=== PATIENT | female | born 1980 | race Caucasian/White ===

== ENCOUNTER 2018-06-02 15:10 | Emergency (ER) | payer OTHER ==
[~2018-06-02] VITALS: Ht 167.6 cm; Wt 57.6 kg
[~2018-06-02 15:10] MED LIST: Diflucan100 MG PO; IBUP800 PO; Keflex500 MG PO; OXYACE5T PO; Pyridium200 MG PO; TRAZ50 PO; Zoloft25 MG PO
== END 2018-06-02 18:05 | disposition home or self-care (01) ==
LOC: ER 15:10
DX: F10.129 Alcohol abuse with intoxication, unspecified (principal); F17.210 Nicotine dependence, cigarettes, uncomplicated
CPT/HCPCS: 99284

== ENCOUNTER → 2018-10-22 | Outpatient (CLI) | payer OTHER | END | disposition home or self-care (01) | LOC: LAB EV 09:47 → LAB SHORT 09:47 | DX: N39.0 Urinary tract infection, site not specified (principal) | CPT/HCPCS: 87086 ==

== ENCOUNTER 2021-10-29 20:39 | Emergency (ER) | payer OTHER ==
[~2021-10-29] VITALS: Ht 167.6 cm; Wt 59.0 kg
[~2021-10-29 20:39] MED LIST changes: +BUSP10 PO; +CEPH500 PO
== END 2021-10-29 23:52 | disposition left against medical advice (07) ==
LOC: ER 20:39
DX: Z65.9 Problem related to unspecified psychosocial circumstances (principal); Z53.21 Procedure and treatment not carried out due to patient leaving prior to being seen by health care provider
CPT/HCPCS: 99281

== ENCOUNTER → 2022-01-25 | Outpatient (CLI) | payer OTHER ==
[2022-01-27 01:10] LABS: CHLAMYDIA BY NAA Negative (Negative); GONOCOCCUS BY NAA Negative (Negative); TRICH VAG BY NAA Negative (Negative)
== END | disposition home or self-care (01) ==
LOC: LAB SHORT 16:56 → LAB 16:56
PROVIDERS: Family Medicine
DX: N89.8 Other specified noninflammatory disorders of vagina (principal)
CPT/HCPCS: 87491; 87591; 87661

== ENCOUNTER → 2022-01-30 | Outpatient (CLI) | payer OTHER ==
[2022-02-01 16:10] LABS: CHLAMYDIA BY NAA Negative (Negative); GONOCOCCUS BY NAA Negative (Negative); TRICH VAG BY NAA Negative (Negative)
== END | disposition home or self-care (01) ==
LOC: LAB SHORT 10:29 → LAB 10:29
PROVIDERS: Chiropractor
DX: Z20.9 Contact with and (suspected) exposure to unspecified communicable disease (principal)
CPT/HCPCS: 87491; 87591; 87661

== ENCOUNTER → 2022-02-26 | Outpatient (CLI) | payer OTHER ==
[2022-02-27 10:39] LABS: Candida species (DNA Probe) Negative (NEGATIVE); G. vaginalis (DNA Probe) Negative (NEGATIVE); T. vaginalis (DNA Probe) Negative (NEGATIVE)
== END | disposition home or self-care (01) ==
LOC: LAB SHORT 16:59 → LAB 16:59
PROVIDERS: Obstetrics & Gynecology
DX: N89.8 Other specified noninflammatory disorders of vagina (principal)
CPT/HCPCS: 87480; 87510; 87660

== ENCOUNTER → 2022-05-09 | Outpatient (CLI) | payer OTHER | END | disposition home or self-care (01) | LOC: LAB SHORT 16:39 | DX: R10.0 Acute abdomen (principal) | CPT/HCPCS: 87077; 87086; 87186 ==

== ENCOUNTER 2022-05-13 17:58 | Inpatient (IN) | payer OTHER ==
[~2022-05-13] VITALS: Ht 167.6 cm; Wt 69.8 kg
[2022-05-13 18:57] LABS: BASOPHILS ABSOLUTE AUTO 0.17 K/mm3 (0.00-0.23); BASOPHILS PERCENT AUTO 1 % (0-2); Hematocrit 27.9 % (33.0-51.0); LYMPHOCYTES ABSOLUTE AUTO 1.53 K/mm3 (0.84-5.20); LYMPHOCYTES PERCENT AUTO 5 % (21-46); MONOCYTES ABSOLUTE AUTO 1.94 K/mm3 (0.16-1.47); MONOCYTES PERCENT AUTO 6 % (4-13); Mean Corpuscular HGB Conc 35.8 g/dL (31.5-36.5); Mean Corpuscular Volume 86 fL (80-100); Mean Platelet Volume 11.2 fL (9.1-12.4); Platelet Count 139 K/mm3 (150-400); RDW Coefficient Variation 15.5 % (11.7-14.2); RDW Standard Deviation 49.1 fL (35.1-46.3); Red Blood Cell Count 3.23 M/mm3 (3.80-5.20); White Blood Cell Count 33.73 K/mm3 (4.00-11.30)
[2022-05-13 18:59] LABS: EOSINOPHILS PERCENT AUTO 0 % (0-6); IMMATURE GRAN ABSOLUTE AUTO 2.56 K/mm3 (0.00-0.10); IMMATURE GRAN PERCENT AUTO 8 % (0-1); NEUTROPHILS ABSOLUTE AUTO 27.43 K/mm3 (1.96-9.15); NEUTROPHILS PERCENT AUTO 81 % (41-73)
[2022-05-13 19:14] LABS: Albumin/Globulin Ratio 0.4 (0.8-1.8); Calcium, Blood 8.6 mg/dL (8.5-10.1); Creatinine, Blood 6.31 mg/dL (0.40-1.00); Globulin, Blood 4.5 g/dL (2.2-4.0); Potassium, Blood 4.7 mmol/L (3.5-5.5); Total Protein, Blood 6.2 g/dL (6.4-8.2)
[2022-05-13 19:17] LABS: Albumin, Blood 1.7 g/dL (3.4-5.0)
[2022-05-13 19:32] LABS: BAND PERCENT MAN 11 % (0-8); BASOPHILS PERCENT MAN 0 % (0-2); EOSINOPHILS ABSOLUTE MAN 0.33 K/mm3 (0.00-0.68); EOSINOPHILS PERCENT MAN 1 % (0-6); LYMPHOCYTES ABSOLUTE MAN 2.36 K/mm3 (0.84-5.20); LYMPHOCYTES PERCENT MAN 7 % (21-46); METAMYELOCYTE ABSOLUTE MAN 0.33 K/mm3 (0.00-0.00); METAMYELOCYTE PERCENT MAN 1 % (0-0); MONOCYTES ABSOLUTE MAN 1.68 K/mm3 (0.16-1.47); MONOCYTES PERCENT MAN 5 % (4-13); SEG NEUTROPHILS PERCENT MAN 75 % (41-73); TOTAL CELLS COUNTED 100
[2022-05-14 00:09] LABS: Thyroid Stimulating Hormone 2.27 uIU/mL (0.360-4.800)
[2022-05-14 04:53] LABS: Albumin, Blood 1.5 g/dL (3.4-5.0); Albumin/Globulin Ratio 0.4 (0.8-1.8); Bilirubin, Total 1.7 mg/dL (0.1-1.0); Bun/Creatinine Ratio 16.7 (12.0-20.0); Calcium, Blood 7.7 mg/dL (8.5-10.1); Creatinine, Blood 5.86 mg/dL (0.40-1.00); Potassium, Blood 4.3 mmol/L (3.5-5.5); Total Protein, Blood 5.5 g/dL (6.4-8.2)
[2022-05-14 04:55] LABS: Source, Urine Foley catheter
[2022-05-14 05:22] LABS: Bilirubin, Urine Neg (Neg); Blood, Urine 5+ (Neg); Glucose Qualitative, Urine Neg (Neg); Ketones, Urine Neg (Neg); Leukocyte Esterase, Urine 3+ (Neg); Nitrite, Urine Pos (Neg); Protein, Urine 2+ (Neg); Urobilinogen, Urine 1+ (Normal)
[2022-05-14 05:27] LABS: Appearance, Urine Hazy (Clear); Color, Urine Yellow (P-Yellow)
[2022-05-14 05:29] LABS: U Amphetamine Screen Not Detected; U Barbituate Screen Not Detected; U Benzodiazapine Screen Not Detected; U Buprenorphine Screen Not Detected; U Cannabinoids Screen Not Detected; U Cocaine Screen Not Detected; U Methadone Screen Not Detected; U Methamphetamine Screen Not Detected; U Opiates Screen Not Detected; U Oxycodone Screen DETECTED; U Phencyclidine Screen Not Detected; U Propoxyphene Screen Not Detected
[2022-05-14 05:33] LABS: Bacteria Mod /hpf; Red Blood Cells, Urine 25-50 /hpf (0-2); Squamous Epithelial Cells Rare /hpf (Few); White Blood Cells, Urine 25-50 /hpf (0-5)
[2022-05-14 06:12] LABS: White Blood Cells Urine 25-50 /hpf (0-5)
[2022-05-14 06:14] LABS: Eosinophils-Raw #,Urine 0
--- NOTE | 2022-05-14 06:44 | NUR ---
SHIFT SUMMARY PATIENT ARRIVED TO ROOM 331 VIA STRETCHER. SHE IS ALERT AND ORIENTED X4 WAS ABLE TO STAND AND TRANSFER TO THE BED WITH MINIMAL ASSISTANCE. SHE IS WEAK BUT STEADY ON HER FEET. PATIENT HAD AN INDWELLING LE BUT IT WAS NOT DRAINING URINE AND NOTED TO BE INSERTED IN THE VAGINA THE PATIENT WAS ABLE TO VOLUNTARILY URINATE. ATTEMPTED TWICE TO INSERT A LE UNSUCCESSFULLY. PATIENT HAVING BLADDER SPASMS AND NEEDS TO STRAIN TO INITIATE STREAM. CALLED DR FORTUNE TO NOTIFY HER THAT THE PATIENT WAS EXPERIENCING 8/10 PAIN, SEE EMAR FOR ORDER.
--- NOTE | 2022-05-14 15:53 | NUR ---
SHIFT SUMMARY PATIENT IS ALERT AND ORIENTED. PATIENT HAS HAD NO ACUTE EVENTS THIS SHIFT. VITAL SIGNS REVIEWED. PATIENTS SODIUM HAS BEEN SLOWLY RISING TO 121 CURRENTLY. PATIENT HAS NS RUNNING AT 200/HR CONTINUOUS. PATIENT HAS PAIN IN ABD, PAIN MEDICATION CHANGED FROM Q6 TO Q4 WITH BETTER PAIN MANAGEMENT. PATIENT IS IND IN ROOM TO BATHROOM. PATIENT HAS NOT HAD ANY NAUSEA, SOB OR VOMITTING THIS SHIFT. BED IN LOCKED AND LOWEST POSITION. CALL LIGHT IN PLACE. WILL MONITOR UNTIL SHIFT CHANGE.
--- NOTE | 2022-05-15 05:23 | NUR ---
FLOW MANAGER SUMMARY: A&Ox4. PLEASANT AND COOPERATIVE WITH CARE. CALLS APPROPRIATELY AND IS ABLE TO COMMUNICATE NEEDS EFFECTIVELY. C/O SEVERE ABD AND FLANK PAIN NOT RELIEVED WITH IV FENTANYL Q6 OR 4 HOURS, BUT HAS BEEN CONTROLLED WITH Q2H ADMINISTRATION. SHE ALSO REQUESTED IV FLUIDS BE STOPPED T/O THE NIGHT D/T FREQUENT DISTAL OCCLUSION. HAS BEEN SLEEPING SINCE HAVING FLUIDS TURNED OFF AND PAIN UNDER CONTROL. TELE SINUS W/BBB @ 88bpm. VSS. WILL REPORT TO ONCOMING RN.
[2022-05-15 07:01] LABS: Hematocrit 28.5 % (33.0-51.0); Hemoglobin 9.8 g/dL (11.5-16.0); Mean Corpuscular HGB 30.4 pg (26.0-34.0); Mean Corpuscular HGB Conc 34.4 g/dL (31.5-36.5); Mean Corpuscular Volume 89 fL (80-100); Mean Platelet Volume 10.3 fL (9.1-12.4); Platelet Count 158 K/mm3 (150-400); RDW Coefficient Variation 15.9 % (11.7-14.2); RDW Standard Deviation 50.9 fL (35.1-46.3); Red Blood Cell Count 3.22 M/mm3 (3.80-5.20)
[2022-05-15 07:25] LABS: Bun/Creatinine Ratio 21.2 (12.0-20.0); Calcium, Blood 7.9 mg/dL (8.5-10.1); Creatinine, Blood 3.78 mg/dL (0.40-1.00); Potassium, Blood 4.1 mmol/L (3.5-5.5)
[2022-05-15 07:59] LABS: BAND PERCENT MAN 8 % (0-8); BASOPHILS PERCENT MAN 0 % (0-2); EOSINOPHILS PERCENT MAN 0 % (0-6); LYMPHOCYTES ABSOLUTE MAN 1.09 K/mm3 (0.84-5.20); LYMPHOCYTES PERCENT MAN 5 % (21-46); METAMYELOCYTE ABSOLUTE MAN 0.65 K/mm3 (0.00-0.00); METAMYELOCYTE PERCENT MAN 3 % (0-0); MONOCYTES ABSOLUTE MAN 1.52 K/mm3 (0.16-1.47); MONOCYTES PERCENT MAN 7 % (4-13); MYELOCYTE ABSOLUTE MAN 0.43 K/mm3 (0.00-0.00); MYELOCYTE PERCENT MAN 2 % (0-0); NEUTROPHILS ABSOLUTE MAN 18.09 K/mm3 (1.96-9.15); SEG NEUTROPHILS PERCENT MAN 75 % (41-73); TOTAL CELLS COUNTED 100
--- NOTE | 2022-05-15 15:42 | NUR ---
SHIFT SUMMARY PATIENT IS ALERT AND ORIENTED. PATIENT HAS HAD NO ACUTE EVENTS THIS SHIFT. VITAL SIGNS REVIEWED. PATIENT HAS HAD NO COMPLAINTS OF NAUSEA, VOMITTING, SOB. PATIENT HAS BEEN MEDICATED FOR PAIN Q2 PER EMAR FOR ABD PAIN. PATIENT HAS HAD POWERGLIDE INSERTED DUE TO BLOWN VEINS. BED IN LOCKED AND LOWEST POSITION. CALL LIGHT IN PLACE. WILL MONITOR UNTIL SHIFT CHANGE.
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
[2022-05-16 06:29] LABS: Hematocrit 25.5 % (33.0-51.0); Hemoglobin 8.7 g/dL (11.5-16.0); Mean Corpuscular HGB 30.3 pg (26.0-34.0); Mean Corpuscular HGB Conc 34.1 g/dL (31.5-36.5); Mean Corpuscular Volume 89 fL (80-100); Platelet Count 222 K/mm3 (150-400); RDW Coefficient Variation 15.9 % (11.7-14.2); RDW Standard Deviation 51.2 fL (35.1-46.3); Red Blood Cell Count 2.87 M/mm3 (3.80-5.20); White Blood Cell Count 18.97 K/mm3 (4.00-11.30)
[2022-05-16 06:46] LABS: Calcium, Blood 7.9 mg/dL (8.5-10.1); Creatinine, Blood 2.07 mg/dL (0.40-1.00); Potassium, Blood 4.4 mmol/L (3.5-5.5)
[2022-05-16 06:59] LABS: BAND PERCENT MAN 11 % (0-8); BASOPHILS PERCENT MAN 0 % (0-2); EOSINOPHILS ABSOLUTE MAN 0.37 K/mm3 (0.00-0.68); EOSINOPHILS PERCENT MAN 2 % (0-6); LYMPHOCYTES ABSOLUTE MAN 2.08 K/mm3 (0.84-5.20); LYMPHOCYTES PERCENT MAN 11 % (21-46); METAMYELOCYTE PERCENT MAN 9 % (0-0); MONOCYTES ABSOLUTE MAN 2.08 K/mm3 (0.16-1.47); MONOCYTES PERCENT MAN 11 % (4-13); MYELOCYTE ABSOLUTE MAN 0.75 K/mm3 (0.00-0.00); MYELOCYTE PERCENT MAN 4 % (0-0); NEUTROPHILS ABSOLUTE MAN 11.95 K/mm3 (1.96-9.15); SEG NEUTROPHILS PERCENT MAN 52 % (41-73); TOTAL CELLS COUNTED 100
--- NOTE | 2022-05-16 18:15 | NUR ---
SHIFT SUMMARY PT A&OX4, MOOD UP AND DOWN T/O SHIFT. PT TOLERATING PO PAIN MEDS WELL. VISITOR IN AND OUT T/O SHIFT. TOLERATING PO INTAKE WELL, PLAN TO ADVANCE TO REG DIET FROM FULL LIQUID. CALL LIGHT W/IN REACH. SHOWERED IND. THIS SHIFT. PT VERBALIZED WISHES OF D/C TOMORROW DUE TO HAVING A CHILD @ HOME.
--- NOTE | 2022-05-17 | NUR ---
DIGITAL IMAGING TECHNICIAN DR CONTACT/DR JACOBSON PT LOWER LIMBS BECOMING EDEMATOUS; 1-2+. LOWER LEFT LUNG SOUDS VERY DIMINISHED; PT DENYING SOB BUT C/O INCREASED PAIN W/INSPIRATION. DR ORDER T/STOP FLUIDS; WILL CONT T/MONITOR.
--- NOTE | 2022-05-17 05:08 | NUR ---
MACHINE WELDER SUMMARY A/OX4. PT CONT TO C/O PAIN IN BACK/SIDE AND OVERALL ACHES/PAINS; RCVD ORAL PAIN MED IN REGULAR 4 HR INTERVALS. PT ON FLUIDS AT START OF SHIFT--D5 W/BICARB; PT SWELLING IN BLE (SEE NOTE)--CALL T/FAMILY PHYSICIAN DR; NEW ORDER TO STOP FLUIDS. PT CONT T/EXRESS DESIRE T/DISCHARGE 05/17/22; PT STATES SAYS SHE FEELS SHE IS SLOWLY GETTING BETTER. ON TELE; NORMAL SINUS. CALL LIGHT IN REACH.
[2022-05-17 06:17] LABS: Hematocrit 24.4 % (33.0-51.0); Hemoglobin 8.5 g/dL (11.5-16.0)
[2022-05-17 06:36] LABS: Albumin, Blood 1.6 g/dL (3.4-5.0); Anion Gap 7 mmol/L (6-16); Blood Urea Nitrogen 35 mg/dL (8-24); Bun/Creatinine Ratio 25.5 (12.0-20.0); CO2, Blood 24 mmol/L (21-32); CPK Creatine Kinase 24 U/L (26-193); Calcium, Blood 8.1 mg/dL (8.5-10.1); Chloride, Blood 104 mmol/L (98-108); Creatinine, Blood 1.37 mg/dL (0.40-1.00); Glomerular Filtration Rate 50 (60-); Glucose, Blood 91 mg/dL (70-99); Magnesium, Blood 1.4 mg/dL (1.6-2.4); Phosphorus, Blood 3.4 mg/dL (2.5-4.9); Potassium, Blood 4.5 mmol/L (3.5-5.5); Sodium, Blood 135 mmol/L (136-145)
--- NOTE | 2022-05-17 07:23 | NUR ---
PHYSICIAN CONTACT DR. BETANCOURT AT BEDSIDE; NEW VERBAL ORDER FOR 20MG IV LASIX NOW, ONE TIME.
[2022-05-17 11:01] LABS: Hematocrit 25.5 % (33.0-51.0); Hemoglobin 8.5 g/dL (11.5-16.0); Mean Corpuscular HGB Conc 33.3 g/dL (31.5-36.5); Mean Corpuscular Volume 90 fL (80-100); Mean Platelet Volume 9.8 fL (9.1-12.4); Platelet Count 315 K/mm3 (150-400); RDW Standard Deviation 52.4 fL (35.1-46.3); Red Blood Cell Count 2.83 M/mm3 (3.80-5.20); White Blood Cell Count 16.14 K/mm3 (4.00-11.30)
--- NOTE | 2022-05-17 19:43 | NUR ---
pt is a/ox4, pleasant and cooperative. the pt is up ind in her room. the pt appears to be breathing easily on ra at this time. pt reported back and shoulder pain t/o the day and pérez this afternoon. the pt was medicated for pain. call light in reach. vss
--- NOTE | 2022-05-18 04:22 | NUR ---
SHIFT SUMMARY NO ACUTE CHANGES TO REPORT OVERNIGHT, PT REPORTS THAT OVERALL SHE IS FEELING BETTER BUT DID COMPLAIN OF PAIN IN HER RIBS AND BACK THIS SHIFT RELATED TO HER CURRENT ILLNESS, PT MEDICATED PER EMAR. PT IS SLIGHTLY FEBRILE BUT COULD BE CONTRIBUTED BY HEATING PAD FOR PAIN. SHE HAS BEEN INDEPEDNENT IN THE ROOM. VITALS OTHERWISE STABLE, A/OX4 INDEPENDENT IN THE ROOM. PLAN IS FOR DISCHARGE TODAY.
[2022-05-18 06:09] LABS: BASOPHILS ABSOLUTE AUTO 0.11 K/mm3 (0.00-0.23); BASOPHILS PERCENT AUTO 1 % (0-2); EOSINOPHILS ABSOLUTE AUTO 0.17 K/mm3 (0.00-0.68); EOSINOPHILS PERCENT AUTO 1 % (0-6); Hematocrit 26.4 % (33.0-51.0); Hemoglobin 9.1 g/dL (11.5-16.0); IMMATURE GRAN ABSOLUTE AUTO 0.86 K/mm3 (0.00-0.10); IMMATURE GRAN PERCENT AUTO 6 % (0-1); LYMPHOCYTES ABSOLUTE AUTO 2.05 K/mm3 (0.84-5.20); LYMPHOCYTES PERCENT AUTO 14 % (21-46); MONOCYTES ABSOLUTE AUTO 1.65 K/mm3 (0.16-1.47); MONOCYTES PERCENT AUTO 11 % (4-13); Mean Corpuscular HGB 30.6 pg (26.0-34.0); Mean Corpuscular HGB Conc 34.5 g/dL (31.5-36.5); Mean Corpuscular Volume 89 fL (80-100); Mean Platelet Volume 9.4 fL (9.1-12.4); NEUTROPHILS ABSOLUTE AUTO 10.21 K/mm3 (1.96-9.15); NEUTROPHILS PERCENT AUTO 68 % (41-73); Platelet Count 422 K/mm3 (150-400); RDW Coefficient Variation 15.9 % (11.7-14.2); RDW Standard Deviation 50.9 fL (35.1-46.3); Red Blood Cell Count 2.97 M/mm3 (3.80-5.20); White Blood Cell Count 15.05 K/mm3 (4.00-11.30)
[2022-05-18 06:43] LABS: Bun/Creatinine Ratio 21.6 (12.0-20.0); Calcium, Blood 8.8 mg/dL (8.5-10.1); Creatinine, Blood 1.25 mg/dL (0.40-1.00); Magnesium, Blood 1.6 mg/dL (1.6-2.4); Potassium, Blood 4.6 mmol/L (3.5-5.5)
[2022-05-18 06:50] LABS: BAND PERCENT MAN 1 % (0-8); BASOPHILS PERCENT MAN 2 % (0-2); EOSINOPHILS ABSOLUTE MAN 0.15 K/mm3 (0.00-0.68); EOSINOPHILS PERCENT MAN 1 % (0-6); LYMPHOCYTES ABSOLUTE MAN 1.35 K/mm3 (0.84-5.20); LYMPHOCYTES PERCENT MAN 9 % (21-46); MONOCYTES PERCENT MAN 8 % (4-13); NEUTROPHILS ABSOLUTE MAN 12.04 K/mm3 (1.96-9.15); SEG NEUTROPHILS PERCENT MAN 79 % (41-73); TOTAL CELLS COUNTED 100
[2022-05-18] MEDS ORDERED: VISBIOME 112.51 EACH PO (11:13)
[2022-05-18] MEDS ORDERED: LEVAQUIN750 MG PO (11:13)
== END 2022-05-18 12:17 | disposition home or self-care (01) | DRG 871 ==
LOC: ER 17:58 → MEDS 21:27
PROVIDERS: Emergency Medicine; Internal Medicine; Internal Medicine Nephrology; ADMIT Internal Medicine
DX: A41.9 Sepsis, unspecified organism (principal); G93.41 Metabolic encephalopathy; N17.9 Acute kidney failure, unspecified; E87.1 Hypo-osmolality and hyponatremia; E87.20 Acidosis, unspecified; N10 Acute pyelonephritis; Z28.21 Immunization not carried out because of patient refusal; R65.20 Severe sepsis without septic shock; B96.20 Unspecified Escherichia coli [E. coli] as the cause of diseases classified elsewhere; D63.1 Anemia in chronic kidney disease; N18.9 Chronic kidney disease, unspecified; E83.42 Hypomagnesemia; R34 Anuria and oliguria; F17.210 Nicotine dependence, cigarettes, uncomplicated; E86.0 Dehydration; F32.A Depression, unspecified; F41.9 Anxiety disorder, unspecified; Z87.442 Personal history of urinary calculi; Z98.890 Other specified postprocedural states; Z88.2 Allergy status to sulfonamides; Z79.2 Long term (current) use of antibiotics; Z79.899 Other long term (current) drug therapy
CPT/HCPCS: 36415; 51702; 76770; 80048; 80053; 80069; 81001; 82550; 83605; 83735; 83930; 84295; 84443; 84550; 85014; 85018; 85025; 85027; 87040; 87086; 87205; 96365-59; 96366-59; 96375-59; 99285-25; A9270; J0696; J0881; J1650; J1940; J2405; J3010; J3475; J7030; J7070

== ENCOUNTER → 2022-06-20 | Outpatient (CLI) | payer OTHER ==
[~2022-06-20] MED LIST changes: +LEVAQUIN750 MG PO; +VISBIOME 112.51 EACH PO
== END | disposition home or self-care (01) ==
LOC: LAB 10:50 → LAB SHORT 10:50
DX: N39.0 Urinary tract infection, site not specified (principal)
CPT/HCPCS: 87086

== ENCOUNTER 2023-11-07 20:33 | Emergency (ER) | payer OTHER ==
[~2023-11-07] VITALS: Ht 167.6 cm; Wt 65.8 kg
[2023-11-07] MEDS ORDERED: DISU500 PO (21:05)
[2023-11-07] MEDS ORDERED: NS 1,000 ML IV SCH (21:25)
[2023-11-07 21:41] LABS: Albumin, Blood 3.8 g/dL (3.4-5.0); Albumin/Globulin Ratio 0.9 (0.8-1.8); Bilirubin, Total 0.3 mg/dL (0.1-1.0); Bun/Creatinine Ratio 6.8 (12.0-20.0); Calcium, Blood 8.6 mg/dL (8.5-10.1); Creatinine, Blood 0.74 mg/dL (0.40-1.00); Globulin, Blood 4.2 g/dL (2.2-4.0); Potassium, Blood 3.4 mmol/L (3.5-5.5)
[2023-11-07 21:45] LABS: BASOPHILS ABSOLUTE AUTO 0.09 K/mm3 (0.00-0.23); BASOPHILS PERCENT AUTO 2 % (0-2); EOSINOPHILS ABSOLUTE AUTO 0.04 K/mm3 (0.00-0.68); EOSINOPHILS PERCENT AUTO 1 % (0-6); Hematocrit 35.4 % (33.0-51.0); Hemoglobin 11.7 g/dL (11.5-16.0); IMMATURE GRAN ABSOLUTE AUTO 0.01 K/mm3 (0.00-0.10); IMMATURE GRAN PERCENT AUTO 0 % (0-1); LYMPHOCYTES ABSOLUTE AUTO 1.74 K/mm3 (0.84-5.20); LYMPHOCYTES PERCENT AUTO 36 % (21-46); MONOCYTES ABSOLUTE AUTO 0.49 K/mm3 (0.16-1.47); MONOCYTES PERCENT AUTO 10 % (4-13); Mean Corpuscular HGB 29.1 pg (26.0-34.0); Mean Corpuscular HGB Conc 33.1 g/dL (31.5-36.5); Mean Corpuscular Volume 88 fL (80-100); Mean Platelet Volume 9.8 fL (9.1-12.4); NEUTROPHILS ABSOLUTE AUTO 2.43 K/mm3 (1.96-9.15); NEUTROPHILS PERCENT AUTO 51 % (41-73); Platelet Count 375 K/mm3 (150-400); RDW Coefficient Variation 14.6 % (11.7-14.2); RDW Standard Deviation 47.2 fL (35.1-46.3); Red Blood Cell Count 4.02 M/mm3 (3.80-5.20)
[2023-11-07] MEDS ORDERED: ChlordiazePOXIDE 25 MG Cap PO ONE (21:50)
[2023-11-07] MEDS ORDERED: CHLO25 PO (22:15)
[2023-11-07 22:30] VITALS: BP 121/79
== END 2023-11-07 22:41 | disposition home or self-care (01) ==
LOC: ER 20:33
PROVIDERS: Physician Assistant
DX: F10.139 Alcohol abuse with withdrawal, unspecified (principal); Z88.2 Allergy status to sulfonamides; Z79.899 Other long term (current) drug therapy; F17.290 Nicotine dependence, other tobacco product, uncomplicated
CPT/HCPCS: 80053; 85025; 96360; 99284-25; A9270; J7030

== ENCOUNTER → 2023-12-23 | Outpatient (CLI) | payer OTHER ==
[~2023-12-23] MED LIST changes: +CHLO25 PO; +DISU500 PO
[2023-12-23 19:33] LABS: Bacterial Vaginosis PCR Negative (NEGATIVE); Candida Group, PCR NOT DETECTED (NOT DETECT); Candida glabrata-krusei, PCR NOT DETECTED (NOT DETECT)
== END | disposition home or self-care (01) ==
LOC: LAB SHORT 15:33
PROVIDERS: Family Medicine
DX: N89.8 Other specified noninflammatory disorders of vagina (principal)
CPT/HCPCS: 87481; 87661; 87801

== ENCOUNTER 2024-01-19 23:01 | Inpatient (IN) | payer OTHER ==
[~2024-01-19] VITALS: Ht 170.2 cm; Wt 64.2 kg
[2024-01-19 23:25] LABS: BASOPHILS ABSOLUTE AUTO 0.09 K/mm3 (0.00-0.23); BASOPHILS PERCENT AUTO 1 % (0-2); EOSINOPHILS ABSOLUTE AUTO 0.05 K/mm3 (0.00-0.68); EOSINOPHILS PERCENT AUTO 1 % (0-6); Hematocrit 36.5 % (33.0-51.0); Hemoglobin 11.6 g/dL (11.5-16.0); IMMATURE GRAN ABSOLUTE AUTO 0.01 K/mm3 (0.00-0.10); IMMATURE GRAN PERCENT AUTO 0 % (0-1); LYMPHOCYTES ABSOLUTE AUTO 2.49 K/mm3 (0.84-5.20); LYMPHOCYTES PERCENT AUTO 38 % (21-46); MONOCYTES ABSOLUTE AUTO 0.77 K/mm3 (0.16-1.47); MONOCYTES PERCENT AUTO 12 % (4-13); Mean Corpuscular HGB 27.6 pg (26.0-34.0); Mean Corpuscular HGB Conc 31.8 g/dL (31.5-36.5); Mean Corpuscular Volume 87 fL (80-100); Mean Platelet Volume 9.3 fL (9.1-12.4); NEUTROPHILS ABSOLUTE AUTO 3.16 K/mm3 (1.96-9.15); NEUTROPHILS PERCENT AUTO 48 % (41-73); Platelet Count 301 K/mm3 (150-400); RDW Coefficient Variation 17.6 % (11.7-14.2); RDW Standard Deviation 54.4 fL (35.1-46.3); Red Blood Cell Count 4.21 M/mm3 (3.80-5.20); White Blood Cell Count 6.57 K/mm3 (4.00-11.30)
[2024-01-19 23:48] LABS: Ethanol (Alcohol), Blood, Med 274 mg/dL; Salicylate <1.7 mg/dL (2.8-20.0); Thyroid Stimulating Hormone 0.816 uIU/mL (0.360-4.800); Thyroxine (T4) 5.3 ug/dL (4.8-13.9)
[2024-01-19 23:50] LABS: Acetaminophen, Random <2.0 ug/mL (10.0-30.0); Alanine Aminotransfer (ALT/SGP 29 U/L (12-78); Albumin, Blood 3.9 g/dL (3.4-5.0); Alk Phos 62 U/L (50-136); Anion Gap 19 mmol/L (3-11); Aspartate Aminotrans (AST/SGOT 37 U/L (12-37); Bilirubin, Total 0.3 mg/dL (0.1-1.0); Blood Urea Nitrogen 6 mg/dL (8-24); Bun/Creatinine Ratio 8.1 (12.0-20.0); CO2, Blood 20 mmol/L (21-32); Calcium, Blood 8.9 mg/dL (8.5-10.1); Chloride, Blood 104 mmol/L (98-108); Creatinine, Blood 0.74 mg/dL (0.40-1.00); Globulin, Blood 4.1 g/dL (2.2-4.0); Glomerular Filtration Rate 103 (60-); Glucose, Blood 74 mg/dL (70-99); Potassium, Blood 3.5 mmol/L (3.5-5.5); Sodium, Blood 139 mmol/L (136-145)
[2024-01-20] VITALS (13 sets, daily range): BP systolic 113–154; BP diastolic 73–120
[2024-01-20] MEDS ORDERED: NS 1,000 ML IV ONE (00:19)
[2024-01-20 00:24] LABS: Source, Urine Clean Catch
[2024-01-20 00:32] LABS: Bilirubin, Urine Neg (Neg); Blood, Urine Neg (Neg); Glucose Qualitative, Urine Neg (Neg); Ketones, Urine Neg (Neg); Leukocyte Esterase, Urine Neg (Neg); Nitrite, Urine Neg (Neg); Protein, Urine Neg (Neg); Urobilinogen, Urine NORM (Normal)
[2024-01-20] MEDS ORDERED: NS 1,000 ML IV SCH ×2 (00:35→08:30)
[2024-01-20 00:36] LABS: Appearance, Urine Clear (Clear); Color, Urine Yellow (P-Yellow)
[2024-01-20 01:07] LABS: U Amphetamine Screen Not Detected; U Barbituate Screen Not Detected; U Benzodiazapine Screen Not Detected; U Buprenorphine Screen Not Detected; U Cannabinoids Screen Not Detected; U Cocaine Screen Not Detected; U Methadone Screen Not Detected; U Methamphetamine Screen Not Detected; U Opiates Screen Not Detected; U Oxycodone Screen Not Detected; U Phencyclidine Screen Not Detected
[2024-01-20 05:35] LABS: Bun/Creatinine Ratio 7.2 (12.0-20.0); Calcium, Blood 8.8 mg/dL (8.5-10.1); Creatinine, Blood 0.83 mg/dL (0.40-1.00); Potassium, Blood 3.9 mmol/L (3.5-5.5)
[2024-01-20] MEDS ORDERED: Midazolam HCL 1 MG/ML 5MLVIAL IV ONE ×2 (13:50→14:25)
[2024-01-20] MEDS ORDERED: PHENobarbital Sodium 65MG / ML 1ML Vial IV ONE (16:00)
[2024-01-20] MEDS ORDERED: Ondansetron 4 MG TAB PO PRN (16:05)
[2024-01-20] MEDS ORDERED: Acetaminophen 325 MG TABLET PO PRN (16:05)
[2024-01-20] MEDS ORDERED: Thiamine HCl 100 MG in NS 50 ML IV SCH (16:31)
[2024-01-20] MEDS ORDERED: PHENobarbital Sodium 65MG / ML 1ML Vial IV PRN (17:00)
--- NOTE | 2024-01-20 20:45 | NUR ---
NEW ER ADMIT TO ICU 3: PT ARRIVED TO THE UNIT AT 2017; REPORT RECIEVED FROM DEEPA PATEL. PT ADMITTED TO THE UNIT FOR SI AND ETOH WITHDRAWL. ON ADMISSION PT CIWA SCORE IS 8, PT REPORTS ANXIETY, 8-9. PRN PHENOBARB GIVEN PER EMAR WITH GOOD EFFECT. PT IS A&O X 4, PLEASANT AND COOPERATIVE WITH CARE. PT HAVING DIFFICULTY AT TIMES RECALLING INFORMATION BUT CAN WORK IT OUT ON HER OWN, SPEECH SLURRED INTERMITTEN. PT ON RA, SPO2 98<, AND LUNGS CLEAR T/O. SR ON MONITOR WITH HR 80'S, SBP 130'S AND DENIES CHEST PAIN/PRESSURE OR SOB AT THIS TIME. +BT, ABD SOFT AND NON-TENDER AND TOLERATING PO INTAKE. PT UP TO BEDSIDE COMMODE WITH 2 PERSON ASSIST, UNSTEADY ON FEET. PT VOIDED 250 BUT C/O SUPRAPUBIC PAIN. BLADDER SCAN COMPLETED AND 999+ SEEN; STRAIGHT CATH PERFORMED WITH 1100 OUTPUT. PT HIGH SUICIDE RISK AT THIS TIME WITH 1:1 SITTER IN ROOM. PT BEING APPROPRIATE WITH STAFF MEMBERS AND IS FOLLOWING DIRECTIONS. PT'S FIANCE UPDATED ON PT'S STATUS AND ALL QUESTIONS ANSWERED AT THIS TIME. PT'S FIANCE REQUESTED TO SPEAK WITH PSYCHIATRIST AT SOME POINT DURING ADMISSION. PT MADE AWARE. BED LOWERED, CALL LIGHT IN REACH.
[2024-01-21] VITALS (39 sets, daily range): BP systolic 127–152; BP diastolic 78–101
[2024-01-21 03:41] LABS: BASOPHILS ABSOLUTE AUTO 0.07 K/mm3 (0.00-0.23); BASOPHILS PERCENT AUTO 1 % (0-2); EOSINOPHILS ABSOLUTE AUTO 0.15 K/mm3 (0.00-0.68); EOSINOPHILS PERCENT AUTO 2 % (0-6); Hematocrit 33.3 % (33.0-51.0); Hemoglobin 10.7 g/dL (11.5-16.0); IMMATURE GRAN ABSOLUTE AUTO 0.01 K/mm3 (0.00-0.10); IMMATURE GRAN PERCENT AUTO 0 % (0-1); LYMPHOCYTES ABSOLUTE AUTO 1.78 K/mm3 (0.84-5.20); LYMPHOCYTES PERCENT AUTO 29 % (21-46); MONOCYTES ABSOLUTE AUTO 0.64 K/mm3 (0.16-1.47); MONOCYTES PERCENT AUTO 10 % (4-13); Mean Corpuscular HGB Conc 32.1 g/dL (31.5-36.5); Mean Corpuscular Volume 87 fL (80-100); Mean Platelet Volume 9.9 fL (9.1-12.4); NEUTROPHILS ABSOLUTE AUTO 3.54 K/mm3 (1.96-9.15); NEUTROPHILS PERCENT AUTO 57 % (41-73); Platelet Count 242 K/mm3 (150-400); RDW Coefficient Variation 17.6 % (11.7-14.2); RDW Standard Deviation 54.9 fL (35.1-46.3); Red Blood Cell Count 3.82 M/mm3 (3.80-5.20); White Blood Cell Count 6.19 K/mm3 (4.00-11.30)
[2024-01-21 04:08] LABS: Albumin, Blood 3.5 g/dL (3.4-5.0); Bilirubin, Total 0.9 mg/dL (0.1-1.0); Calcium, Blood 8.7 mg/dL (8.5-10.1); Creatinine, Blood 0.83 mg/dL (0.40-1.00); Globulin, Blood 3.6 g/dL (2.2-4.0); Potassium, Blood 3.4 mmol/L (3.5-5.5); Total Protein, Blood 7.1 g/dL (6.4-8.2)
--- NOTE | 2024-01-21 06:08 | NUR ---
SHIFT SUMMARY: NO ACUTE CHANGES OVERNIGHT; VSS THROUGHOUT THE SHIFT. AFTER PHENOBARB ADMINISTRATION PT SLEPT FOR THE REST OF THE SHIFT. 1:1 SITTER AT BEDSIDE FOR ENTIRE SHIFT. BED LOWERED, CALL LIGHT IN REACH.
[2024-01-21] MEDS ORDERED: NS 250 ML IV PRN (07:50)
[2024-01-21] MEDS ORDERED: Enoxaparin 40 MG/0.4 ML SYR SC SCH (09:00)
[2024-01-21] MEDS ORDERED: Sertraline HCl 100 MG Tab PO SCH (09:00)
[2024-01-21] MEDS ORDERED: Nicotine 14 MG PATCH TOP SCH (09:00)
--- NOTE | 2024-01-21 10:32 | NUR ---
Poison Control: Received call from poison control at this time. Updated on labs, vitals, and current condition. Poison control signing off case at this time.
[2024-01-21] MEDS ORDERED: BusPIRone HCl 5 MG Tab PO PRN (11:15)
[2024-01-21 12:23] LABS: Source, Urine Foley catheter
[2024-01-21 12:36] LABS: Appearance, Urine Clear (Clear); Bilirubin, Urine Neg (Neg); Blood, Urine Neg (Neg); Color, Urine Yellow (P-Yellow); Glucose Qualitative, Urine Neg (Neg); Ketones, Urine 1+ (Neg); Leukocyte Esterase, Urine Neg (Neg); Nitrite, Urine Neg (Neg); Protein, Urine Neg (Neg); Urobilinogen, Urine NORM (Normal)
--- NOTE | 2024-01-21 18:23 | NUR ---
Summary. Pt rested in bed throughout shift. Reynolds cath placed for acute retention with good effect. Dr. Horton in to see pt this afternoon. Pt pleasant and cooperative with care, tearful at times, states she feels "embarrassed". Pt sleeping much of shift. VS stable. See chart for further details.
--- NOTE | 2024-01-21 19:24 | NUR ---
ASSUMED CARE OF PATIENT AT 1900. REPORT RECEIVED FROM JORGE COMBS. PT RESTING IN BED EATING DINNER. 1:1 SITTER AT BEDSIDE. PT LETHARGIC WITH VERBAL SLOW VERBAL RESPONSES, ALTHOUGH APPROPRIATE. BP STABLE. ON RA WITH O2 SATURATION 97%. DENIES PAIN, CP, OR SOB AT THIS TIME. LE IN PLACE. NO ACUTE NEEDS IDENTIFED AT THIS TIME. SEE SHIFT ASSESSMENT FOR FUTHER DETAILS.
[2024-01-22] VITALS (14 sets, daily range): BP systolic 114–138; BP diastolic 77–98
[2024-01-22] MEDS ORDERED: PHENobarbitaL sodium 130 MG/ML VIAL IV PRN (03:30)
[2024-01-22 03:41] LABS: BASOPHILS ABSOLUTE AUTO 0.07 K/mm3 (0.00-0.23); BASOPHILS PERCENT AUTO 1 % (0-2); EOSINOPHILS ABSOLUTE AUTO 0.28 K/mm3 (0.00-0.68); EOSINOPHILS PERCENT AUTO 6 % (0-6); Hematocrit 35.7 % (33.0-51.0); Hemoglobin 11.5 g/dL (11.5-16.0); IMMATURE GRAN PERCENT AUTO 0 % (0-1); LYMPHOCYTES ABSOLUTE AUTO 1.83 K/mm3 (0.84-5.20); LYMPHOCYTES PERCENT AUTO 36 % (21-46); MONOCYTES ABSOLUTE AUTO 0.55 K/mm3 (0.16-1.47); MONOCYTES PERCENT AUTO 11 % (4-13); Mean Corpuscular HGB 27.9 pg (26.0-34.0); Mean Corpuscular HGB Conc 32.2 g/dL (31.5-36.5); Mean Corpuscular Volume 87 fL (80-100); Mean Platelet Volume 10.1 fL (9.1-12.4); NEUTROPHILS ABSOLUTE AUTO 2.35 K/mm3 (1.96-9.15); NEUTROPHILS PERCENT AUTO 46 % (41-73); Platelet Count 259 K/mm3 (150-400); RDW Coefficient Variation 17.3 % (11.7-14.2); RDW Standard Deviation 54.3 fL (35.1-46.3); Red Blood Cell Count 4.12 M/mm3 (3.80-5.20); White Blood Cell Count 5.08 K/mm3 (4.00-11.30)
[2024-01-22 04:02] LABS: Albumin, Blood 3.4 g/dL (3.4-5.0); Albumin/Globulin Ratio 0.9 (0.8-1.8); Bilirubin, Total 0.6 mg/dL (0.1-1.0); Bun/Creatinine Ratio 11.3 (12.0-20.0); Calcium, Blood 8.7 mg/dL (8.5-10.1); Creatinine, Blood 0.88 mg/dL (0.40-1.00); Globulin, Blood 3.7 g/dL (2.2-4.0); Potassium, Blood 3.4 mmol/L (3.5-5.5); Total Protein, Blood 7.1 g/dL (6.4-8.2)
--- NOTE | 2024-01-22 06:01 | NUR ---
SHIFT SUMMARY PT REMAINED ALERT AND ORIENTED X 4 T/O ENTIRETY OF SHIFT. ABLE TO FOLLOW COMMANDS, MAKE PURPOSEFUL MOVEMENTS, AND MAKE NEEDS KNOWN. AFEBRILE. REPORTED ONE EPISODE OF PAIN IN HER HEAD AND BACK. MEDICATED PER EMAR WITH GOOD BENEFIT. CIWA SCORES RANGED FROM 4-12, MEDICATED PER EMAR WITH GOOD BENEFIT. PT TEARFUL AT TIMES AND EMBARRASSED REGARDING HOSPITALIZATION. CONTINOUS CARDIAC MONITORING IN PLACE SHOWED SR WITH HR IN 70'S-90'S. BP STABLE. ON RA WITH O2 SATURATION > 92%. NO BM THIS SHIFT. DENIES N/V. TOLERATED PO INTAKE WELL. LE IN PLACE DRAINING CLEAR YELLOW URINE TO GRAVITY. PIV TO RAC AND LFA. POTASSIUM REPLACEMENT ORDERED PER HOSPITALIST. WILL CONTINUE TO MONITOR AND REPORT TO ONCOMING RN.
[2024-01-22] MEDS ORDERED: Potassium Chloride 20 MEQ TabCR PO ONE (06:05)
--- NOTE | 2024-01-22 09:22 | NUR ---
Pt transferred to PCU 03. Report given to RN assuming care. Pt taken via wheelchair, sitter accompanied pt to new room. All personal belongings sent with patient to new room. VS stable at time of transfer.
[2024-01-22] MEDS ORDERED: PHENobarbital 64.8 MG Tab PO PRN ×2 (10:00→18:05)
--- NOTE | 2024-01-22 12:20 | NUR ---
PT TRANSFERED TO PCU 03 FROM ICU 03. REPORT RECIEVED FROM MAEGAN Hayden RN. ROOM LITIGATED PRIOR TO ARRIVAL. THE PT ARRIVED VIA WHEELE CHAIR AND WAS ABLE TO STAND WITH MINIMAL ASSISTANCE AND TRANSFER TO THE PCU BED. SHE HAS A LE DRAINING TO GRAVITY WITH YELLOW URINE D/T ACUTE RETENTION. THE PT'S VS REMAIN STABLE. ON TELE SHE IS SR/ST 80'S-100'S. SHE REMAINS ON RA W/ SP02 >93%. THE PT HAS BEEN FEELING REMORSE FOR THE EVENTS LEADING HER INTO HER POSITION, SHE STATED SHE STILL FEEL'S DEPRESSED, AND ANXIOUS. SHE WAS MEDICATED WITH BUSPAR FOR ANXIETY PRIOR TO ARRIVAL. PT'S CIWA WAS 2 ON TRANSFER R/T ANXIETY. THE PT DENIES ANY SUICIDAL IDEATION, THOUGHTS, OR FEELINGS. THE PT STATED TO THIS RN, THAT SHE WANTS TO GET THERAPY, AND GET HELP FOR HER ETOH USE AND DEPRESSION. DR. KHAN CAME AND SAW THE PT TODAY AND THE PT WAS RECEPTIVE AND WILLING TO GO TO THE U ONCE MEDICALLY STABLE. 1:1 SITTER REMAINS IN THE ROOM. SEE NOTES FOR ANY UPDATES.
[2024-01-22 12:52] LABS: Magnesium, Blood 1.9 mg/dL (1.6-2.4); Phosphorus, Blood 4.1 mg/dL (2.5-4.9)
--- NOTE | 2024-01-22 14:51 | NUR ---
I TALKED TO DR. SETHI ABOUT THE PLAN FOR PCU 03. WE ARE AWAITING FOR HER ACUTE RETENTION TO CLEAR. THIS RN WILL PULL HER LE AND ENCOURAGE Q2 HR TOILETING. DR. SETHI MADE THE PT MEDICAL STATUS W/O TELE. SEE NOTES FOR UPDATES.
--- NOTE | 2024-01-22 15:56 | NUR ---
assumption of care this rn assumed care. patient in room visiting with significant other. vital signs stable. one on one sitter in place.
[2024-01-22] MEDS ORDERED: BusPIRone HCl 5 MG Tab PO PRN (18:10)
--- NOTE | 2024-01-22 20:00 | NUR ---
ASSESSMENT/ASSUMED CARE PT SITTING UP IN BED WITH EYES CLOSED. A&O. ANSWERS QUESTIONS APPROP. DENIES SI OR PLAN AT THIS TIME. LUNGS CLEAR ON ROOMAIR. RESP EVEN AND NONLABORED. DENIES SOB OR COUGH. DENIES PAIN OR DISCOFORT. CIWA 0. MOVING SELF AROUND IN BED. BT+ ABD SOFT AND NONTENDER. IV TO RIGHT AND LEFT AC SALINE LOCKED. SITES CLEAR AND ABLE TO FLUSHE WITHOUT DIFFICULTY. PT HAS NOT VOIDED SINCE LE CATH REMOVED AT 1500. WILL CONT TO MONITOR. PT STATES,"I'M JUST REALLY TIRED TO NIGHT'.
--- NOTE | 2024-01-22 22:17 | NUR ---
RETENSION PT UP TO BATHROOM UNABLE TO VOID. BLADDER SCAN DONE 465 ML NOTED IN BLADDER. PT BACK UP TO BATHROOM TO TRY AND VOID AGAIN. UNABLE TO VOID. STRAIGHT CATH DONE WITH 14 FR CATH. WILL LEAVE IN FOR 20-30 MIN TO DRAIN BLADDER. PT REPORTS," I HAVE BEEN HAVING A HARD TIME TRYING TO PEE EVEN BEFORE ALL THIS. SOMETIMES I FEEL LIKE I NEED TO GO, BUT CAN'T". CLEAR YELLOW URINE DRAINING. PT TEARFUL WHEN TOLD THAT S.O. CALL AND THAT HE LOVES HER. PT TALKING ON PHONE WITH S.O. WHILE RN IN ROOM. PT LAUGHING WHILE SPEAKING WITH S.O.
--- NOTE | 2024-01-22 22:45 | NUR ---
REMOVED LE CATH. TOTAL AMT URINE DRAINED 550ML. PT REQUESTING SOMETHING FOR ANXIETY BUSPAR 5 MG GIVEN PER EMAR
[2024-01-23 03:33] VITALS: BP 141/92
--- NOTE | 2024-01-23 04:00 | NUR ---
RETENSION PT UNABLE TO VOID. BLADDER SCAN DONE FOR 885 ML. PT UP WALKING AROUND IN ROOM. STATES,"I CAN FEEL IT. I DON'T UNDERSTAND WHY I CAN'T GO". PT TRIED TO VOID ONE MORE TIME BEFORE STRAIGHT CATH WAS DONE. PT ABLE TO VOID 1000ML.
[2024-01-23 04:17] LABS: BASOPHILS ABSOLUTE AUTO 0.07 K/mm3 (0.00-0.23); BASOPHILS PERCENT AUTO 1 % (0-2); EOSINOPHILS ABSOLUTE AUTO 0.23 K/mm3 (0.00-0.68); EOSINOPHILS PERCENT AUTO 4 % (0-6); Hematocrit 35.3 % (33.0-51.0); Hemoglobin 11.3 g/dL (11.5-16.0); IMMATURE GRAN ABSOLUTE AUTO 0.01 K/mm3 (0.00-0.10); IMMATURE GRAN PERCENT AUTO 0 % (0-1); LYMPHOCYTES ABSOLUTE AUTO 2.08 K/mm3 (0.84-5.20); LYMPHOCYTES PERCENT AUTO 34 % (21-46); MONOCYTES ABSOLUTE AUTO 0.54 K/mm3 (0.16-1.47); MONOCYTES PERCENT AUTO 9 % (4-13); Mean Corpuscular HGB 27.8 pg (26.0-34.0); Mean Corpuscular Volume 87 fL (80-100); Mean Platelet Volume 10.1 fL (9.1-12.4); NEUTROPHILS ABSOLUTE AUTO 3.11 K/mm3 (1.96-9.15); NEUTROPHILS PERCENT AUTO 52 % (41-73); Platelet Count 274 K/mm3 (150-400); RDW Coefficient Variation 17.2 % (11.7-14.2); RDW Standard Deviation 54.5 fL (35.1-46.3); Red Blood Cell Count 4.06 M/mm3 (3.80-5.20); White Blood Cell Count 6.04 K/mm3 (4.00-11.30)
[2024-01-23 04:40] LABS: Albumin, Blood 3.3 g/dL (3.4-5.0); Albumin/Globulin Ratio 0.9 (0.8-1.8); Bilirubin, Total 0.4 mg/dL (0.1-1.0); Bun/Creatinine Ratio 15.5 (12.0-20.0); Calcium, Blood 8.9 mg/dL (8.5-10.1); Creatinine, Blood 0.71 mg/dL (0.40-1.00); Globulin, Blood 3.6 g/dL (2.2-4.0); Potassium, Blood 3.6 mmol/L (3.5-5.5); Total Protein, Blood 6.9 g/dL (6.4-8.2)
--- NOTE | 2024-01-23 05:23 | NUR ---
SHIFT SUMMARY PT RESTING QUIETLY DURING THE NIGHT. DENIES WANTING TO HARM SELF OR HAVING A PLAN TO HARM SELF. FOLLOWING INSTRUCTIONS. UP IN THE ROOM. BLADDER SCANNED TWICE DURING THE NIGHT AND STRAIGHT CATH DONE ONCE. PT ABLE TO VOID AFTER SECOND BLADDER SCAN. PT TEARFUL AT TIMES AND THAN LAUGHING THE NEXT SECOND. PT HOPING TO GO TO BHU TODAY. VSS. NO ACUTE CHANGE. REPORT TO ON COMING NURSE.
[2024-01-23] MEDS ORDERED: BUSP5 PO (10:05)
[2024-01-23] MEDS ORDERED: SERT100 PO (10:06)
[2024-01-23] MEDS ORDERED: Acetaminophen650 M1 PO (10:09)
[2024-01-23] MEDS ORDERED: Nicoderm Cq1 EAC1 TOP (10:09)
--- NOTE | 2024-01-23 13:34 | NUR ---
DISCHARGE SUMMARY PT A&Ox4, CALLS AND COMMUNICATES NEEDS APPROPRIATELY. BP STABLE, NO TELE, HR 80's, DENIES CP/PRESSURE. SpO2> 29% RA, DENIES SOB. IND IN ROOM w/ 1:1 SITTER. PT ABLE TO VOID 1,000mLs WITHOUT INTERVENTION. NO S/S OF ETOH WITHDRAWAL. DENIES SI. DISCHARGE INSTRUCTIONS PROVIDED AND BELONGINGS SENT WITH U STAFF MEMBER. PT REFUSED WHEELCHAIR AND REQUESTED TO AMBULATE TO [facility] WITH STAFF MEMBER. PT LEFT AT APPROXIMATELY 1310.
== END 2024-01-23 13:18 | DRG 918 ==
LOC: ER 23:01 → EOR 23:02 → ICUE 23:02 → EOR 23:02 → ERHOLD 01-20 16:01 → ICUE 01-20 20:15 → PCU 01-22 09:05
PROVIDERS: Emergency Medicine; ADMIT Family Medicine
DX: T39.312A Poisoning by propionic acid derivatives, intentional self-harm, initial encounter (principal); F10.139 Alcohol abuse with withdrawal, unspecified; F32.A Depression, unspecified; F17.210 Nicotine dependence, cigarettes, uncomplicated; F10.129 Alcohol abuse with intoxication, unspecified; E86.0 Dehydration; F41.9 Anxiety disorder, unspecified; Z88.2 Allergy status to sulfonamides; Z79.899 Other long term (current) drug therapy; Z87.442 Personal history of urinary calculi; Z98.890 Other specified postprocedural states
CPT/HCPCS: 36415; 51701; 51702; 80048; 80053; 80320; 81003; 81025; 83735; 84100; 84436; 84443; 85025; 87426; 87811; 93005; 93010; 96374; 96375; 99285-25; A9270; G0378; G0480; J1650; J2250; J2560; J3411; J7030; J7050

== ENCOUNTER 2024-01-23 12:57 | Inpatient (IN) | payer OTHER ==
[~2024-01-23] VITALS: Ht 167.6 cm; Wt 70.0 kg
[~2024-01-23 12:57] MED LIST changes: +Acetaminophen650 M1 PO; +BUSP5 PO; +Nicoderm Cq1 EAC1 TOP; +SERT100 PO
[2024-01-23] MEDS ORDERED: BusPIRone HCl 5 MG Tab PO PRN (13:20)
[2024-01-23] MEDS ORDERED: Acetaminophen 325 MG TABLET PO PRN (13:25)
[2024-01-23] MEDS ORDERED: Docusate Sodium 100 MG Cap PO PRN (13:25)
--- NOTE | 2024-01-23 15:06 | NUR ---
ADMIT NOTE. A/OX4. PLEASANT. PATIENT CAME FROM PCU AT 1319 . ANXIOUS ON ARRIVAL. WAS GIVEN BUSPAR 5 MG. SHE WAS ABLE TO COMPLETE THE INTAKE ADMISSION. PT HAS PIERCINGS OF JEWELRY ON UNABLE TO GET THEM OFF. 1 ERRING TO THE LEFT EAR, 2 SMALL HOOPS TO THE RIGHT EAR AND A NAVAL RING. SHE HAS 2 RINGS ON, ONE TO EACH HAND. PT ADMITS OPENNLY THAT SHE DRINKS ALCOHOL ON A DAILY BASES. HAS DRANK SINCE THE AGE OF 15. WAS IN A TREATMENT FACILTY FOR 9 MONTHS THEN LONG-TERM FOR THE NEXT FIVE MONTHS. THIS WAS A LONG TIME AGO PER PT. SHE FEELS THAT IT WILL BE HARD FOR HER STAY HERE SHE NEEDS TO BE BUSY AND NEEDS MUSIC/NOISE AROUND HER. ORIENTED HER TO THE UNIT AND ABOUT THE PROGRAM. CELESTE [place] WILL BE IN TODAY FOR A VISIT. WILL CONTINUE TO MONITOR
--- NOTE | 2024-01-23 17:58 | NUR ---
SHIFT SUMMARY PATIENT IN A BETTER MOOD SINCE ARRIVAL. CRIED 2 TIMES. HAD FIANCE FELIX IN FOR A VISIT. SHOWERED AND FEELS BETTER. ATE WELL AT DINNER. WILL CONTINUE TO MONITOR.
[2024-01-24] MEDS ORDERED: Sertraline HCl 100 MG Tab PO SCH (09:00)
[2024-01-24] MEDS ORDERED: Thiamine HCl 100 MG Tab PO SCH (09:00)
[2024-01-24 09:14] VITALS: BP 119/85
--- NOTE | 2024-01-24 17:18 | NUR ---
SHIFT SUMMARY: PT CALM AND COOPERATIVE DURING SHIFT. DENIES SI, HI OR AVH. SHE WAS ANXIOUS AT THE BEGINNING OF THE SHIFT AND TEARFUL. DISCUSSED THAT SHE WOULD LIKE TO GET SEE HER DAUGHTER WHO LIVES WITH HER EX. STATES THAT SHE PLANS ON LOOKING INTO A [employer] SUPERVISOR. DISCUSSED WANTING TO STOP DRINKING AND IS INTERESTED IN TREATMENT. SHE WAS INTERACTIVE WITH STAFF, WATCHED MOVIES AND PARTICIPATED IN MEALS. MEDICATED WITH PRN FOR ANXIETY. HER S/O VISITED, SHE WAS TALKATIVE AND LAUGHING WITH HIM DURING THE VISIT.
--- NOTE | 2024-01-25 05:14 | NUR ---
patient is A&OX4, pleasant and cooperative with care. She denies SI, HI or AVH. She stated that she never would have taken "all those pills" had she not been so inebriated at the time. She is very interested in getting back into a supportive program to help her quit drinking. She has a young daughter who lives with her father and Fang would like to eventually gain custody of her. She asked for benedryl to sleep last night. She was given a PRN Klonopin instead that worked very well for her last night. Sleep time approx 7.5 hours at the time of this note. will continue close monitoring
[2024-01-25 08:43] VITALS: BP 121/79
--- NOTE | 2024-01-25 17:32 | NUR ---
SHIFT SUMARRY PT AA&OX4. PLEASANT AND COOPERATIVE WITH CARE. SPEECH AND EYE CONTACY APPROPRIATE. PT COMPLIANT WITH MEDICATIONS. PT MEDICATED X1 FOR ANXIETY WITH GOOD RESULTS. TRAZADONE 300MG ORDERED FOR HS TONIGHT PER DR. ERIN RIZVI SI, AV. MOOD EUTHYMIC AFFECT CONGRUENT. PLAN FOR PT TO STAY UNTIL TU. PT DENIES ANY CURRENT NEEDS OR CONCERNS AT THIS TIME.
[2024-01-25] MEDS ORDERED: TraZODone HCl 100 MG Tab PO SCH (21:00)
[2024-01-25 22:30] VITALS: BP 138/92
--- NOTE | 2024-01-26 04:43 | NUR ---
Patient was much more awake and conversive overnight than the previous night prior to HS. She remains A&OX4, and cooperative with care. She was out in the milieu working on a puzzle for most of the evening. No complaints of SI, HI or AVH. Sleep time so far has been 8 hours. Fang had some concerns about taking the full 300mg of trazodone at HS, but agreed to take 200mg AT bedtime. will continue close monitoring
[2024-01-26 08:32] VITALS: BP 107/73
--- NOTE | 2024-01-26 17:23 | NUR ---
SHIFT SUMMARY PT AxOx4. PLEASANT AND COOPERATIVE WITH CARE. PT HAS BEEN PARTICIPATING IN GROUPS, TAKING MEDS PRESCRIBED AND MINGLING ON THE UNIT WITH STAFF AND PEERS THIS SHIFT. PT REPORTS FEELING "TIRED" THIS AM WHEN ASKED ABOUT HER MOOD. SHE STATES THAT SHE TOOK TRAZODONE LAST NIGHT FOR THE FIRST TIME AND IT MADE HER FEEL VERY GROGGY THIS AM FOR A FEW HOURS. SHE REPORTS NOT WANTING ANY SLEEP MEDS TONIGHT. PT REASSURED SHE CAN DECLINE HER SLEEP AID RX TONIGHT. PT REPORTS LOOKING FORWARD TO DC'ING TOMORROW BACK TO HER HOME WITH HER FIANCE. PT REPORTS HAVING GOOD SUPPORT WITH HER BF AND THAT SHE KNOWS SHE WILL HAVE TO FOLLOW UP WITH [facility] FOR ETOH USE AND RECENT DUI. PT APPEARS TO HAVE ACCOUNTABILITY AND MOTIVATION TO MAKE CHANGES. PT IS CURRENTLY EATING DINNER IN DINING ROOM. DENIES ANY NEEDS AT THIS TIME.
--- NOTE | 2024-01-27 04:59 | NUR ---
VERONIKA VISIBLE ON UNIT AT START OF SHIFT SITTING IN DAYROOM WITH STAFF. A&O X4, APPEARED WELL-GROOMED, BRIGHT AFFECT, GOAL ORIENTED AND GOOD INSIGHT. PT REPORTED "I AM READY TO GO HOME." PT ALSO STATED "I AM DONE WITH ALCOHOL AND PLAN TO GET BACK ON MY ANTABUSE BECAUSE I DO NOT WANT THIS SITUATION TO OCCUR AGAIN." PT DENIED SI/HI/AVTH AND PAIN. ENDORSED FEELING ANXIOUS AND REQUESTED PRN BUSPAR PRIOR TO BEDTIME AND THEN AGAIN AROUND 3 AM WITH REPORTED RELIEF. PT SLEPT WELL THROUGHOUT NIGHT ONLY WAKING X 1. SAFETY MEASURES MAINTAINED VIA Q15 MINUTE CHECKS.
[2024-01-27 05:04] VITALS: BP 100/67
[2024-01-27 08:00] VITALS: BP 118/79
--- NOTE | 2024-01-27 09:57 | NUR ---
Pt Follow up Notes for Discharge Patient will need to go into walk in clinic when discharged to establish care with Pyjuan f and get a therapist on board. Open Access Hours are 830a-2p. Pts Insurance [facility] will also be reaching out to follow up about [employer]- Marcia Rodriguez is the workers name.
[2024-01-27] MEDS ORDERED: B-1100 M1 PO (11:37)
[2024-01-27] MEDS ORDERED: Trazodone HCl300 MG PO (11:43)
--- NOTE | 2024-01-27 11:58 | NUR ---
Pt Discharge Appointment Pt appointment has been set up with PCP provider is Dr Chanel at [facility]. Apt is set for at Noon, Note sent to [facility] transition Coordinator for [place] and will ensure Pt has referral placed to be set up with Behavioral Health.
--- NOTE | 2024-01-27 14:09 | NUR ---
DISCHARGE SUMMARY PT A/O X4; PLEASANT AND COOPERATIVE WITH CARE. PT DENIES SI, HI, OR ANY HALLUCINATIONS. PT IS ENGAGED IN TREATMENT GROUP AND REPORTS THAT SHE IS FEELING WELL AND "FINALLY LIKE A HUMAN". [facility] PCP APPOINTMENT MADE WITH [employer] AND [employer] TO SET PT UP WITH THERAPIST. DC INSTRUCTIONS GONE OVER WITH PATIENT AND PATIENT'S BELONGINGS RETURNED. PT DC'D HOME WITH CELESTE.
== END 2024-01-27 14:55 | disposition home or self-care (01) | DRG 885 ==
LOC: BHU 12:57
PROVIDERS: ADMIT Psychiatry & Neurology Psychiatry
PROC: HZ2ZZZZ Detoxification Services for Substance Abuse Treatment (ICD-10-PCS; principal; 2024-01-23)
DX: F33.2 Major depressive disorder, recurrent severe without psychotic features (principal); F10.239 Alcohol dependence with withdrawal, unspecified; T39.312A Poisoning by propionic acid derivatives, intentional self-harm, initial encounter; Z88.2 Allergy status to sulfonamides; Z79.899 Other long term (current) drug therapy
CPT/HCPCS: A9270

== ENCOUNTER 2024-03-20 14:37 | Inpatient (IN) | payer OTHER ==
[~2024-03-20] VITALS: Ht 167.6 cm; Wt 58.1 kg
[~2024-03-20 14:37] MED LIST changes: -BUSPIRONE HCL30 M1 PO; -DISU250 PO; -Naltrexone HCl50 MG PO
[2024-03-20 15:16] LABS: BASOPHILS ABSOLUTE AUTO 0.02 K/mm3 (0.00-0.23); BASOPHILS PERCENT AUTO 0 % (0-2); EOSINOPHILS ABSOLUTE AUTO 0.04 K/mm3 (0.00-0.68); EOSINOPHILS PERCENT AUTO 1 % (0-6); Hematocrit 36.7 % (33.0-51.0); Hemoglobin 12.1 g/dL (11.5-16.0); IMMATURE GRAN ABSOLUTE AUTO 0.05 K/mm3 (0.00-0.10); IMMATURE GRAN PERCENT AUTO 1 % (0-1); LYMPHOCYTES ABSOLUTE AUTO 0.82 K/mm3 (0.84-5.20); LYMPHOCYTES PERCENT AUTO 12 % (21-46); MONOCYTES ABSOLUTE AUTO 0.72 K/mm3 (0.16-1.47); MONOCYTES PERCENT AUTO 11 % (4-13); Mean Corpuscular HGB 28.4 pg (26.0-34.0); Mean Corpuscular Volume 86 fL (80-100); NEUTROPHILS ABSOLUTE AUTO 4.97 K/mm3 (1.96-9.15); NEUTROPHILS PERCENT AUTO 75 % (41-73); Platelet Count 155 K/mm3 (150-400); RDW Coefficient Variation 20.3 % (11.7-14.2); RDW Standard Deviation 61.7 fL (35.1-46.3); Red Blood Cell Count 4.26 M/mm3 (3.80-5.20); White Blood Cell Count 6.62 K/mm3 (4.00-11.30)
[2024-03-20] MEDS ORDERED: NS 1,000 ML IV SCH ×2 (15:40→18:25)
[2024-03-20 16:01] LABS: C-REACTIVE PROTEIN, EXT RANGE 6.16 mg/dL (0.000-0.300); Magnesium, Blood 2.2 mg/dL (1.6-2.4)
[2024-03-20 16:25] LABS: Albumin, Blood 3.6 g/dL (3.4-5.0); Albumin/Globulin Ratio 0.9 (0.8-1.8); Bilirubin, Total 0.6 mg/dL (0.1-1.0); Bun/Creatinine Ratio 9.7 (12.0-20.0); Creatinine, Blood 8.32 mg/dL (0.40-1.00); Globulin, Blood 3.9 g/dL (2.2-4.0); Phosphorus, Blood 3.2 mg/dL (2.5-4.9); Potassium, Blood 3.6 mmol/L (3.5-5.5); Total Protein, Blood 7.5 g/dL (6.4-8.2)
[2024-03-20 18:59] LABS: Ethanol (Alcohol), Blood, Med <3 mg/dL; Salicylate <1.7 mg/dL (2.8-20.0)
[2024-03-20 19:17] LABS: Acetaminophen, Random <2.0 ug/mL (10.0-30.0)
[2024-03-20 20:48] LABS: Free Thyroxine 0.68 ng/dL (0.70-1.60)
[2024-03-20 21:00] LABS: Thyroid Stimulating Hormone 0.595 uIU/mL (0.360-4.800)
[2024-03-20 21:50] LABS: Appearance, CSF Clear (Clear); Color, CSF No Color (No Color); RBC Count, CSF 8 /mm3 (0-0); WBC Count, CSF 0 /mm3 (0-5)
[2024-03-20 21:57] LABS: Glucose, CSF 65 mg/dL (40-70)
[2024-03-20 22:40] LABS: Source, Urine Clean Catch
[2024-03-20 22:45] LABS: Bilirubin, Urine Neg (Neg); Blood, Urine 5+ (Neg); Glucose Qualitative, Urine Neg (Neg); Ketones, Urine Neg (Neg); Leukocyte Esterase, Urine 2+ (Neg); Nitrite, Urine Neg (Neg); Protein, Urine 2+ (Neg); Specific Gravity, Urine 1.005 (1.003-1.022); Urobilinogen, Urine NORM (Normal)
[2024-03-20 22:53] LABS: Color, Urine Yellow (P-Yellow)
[2024-03-20 22:54] LABS: Amorphous Light (0-Heavy); Appearance, Urine Clear (Clear); Bacteria Few /hpf; Squamous Epithelial Cells Rare /hpf (Few)
[2024-03-20 23:00] LABS: Cryptococcus Neoformans/Gattii Not Detected (NOT DETECT); Enterovirus Not Detected (NOT DETECT); Escherichia Coli K1 Not Detected (NOT DETECT); Haemophilus Influenza Not Detected (NOT DETECT); Herpes Simplex Virus 1 Not Detected (NOT DETECT); Herpes Simplex Virus 2 Not Detected (NOT DETECT); Human Herpesvirus 6 Not Detected (NOT DETECT); Human Parechovirus Not Detected (NOT DETECT); Listeria Monocytogenes Not Detected (NOT DETECT); Neisseria Meningitidis Not Detected (NOT DETECT); Streptococcus Agalactiae Not Detected (NOT DETECT); Streptococcus Pneumoniae Not Detected (NOT DETECT); Varicella Zoster Virus Not Detected (NOT DETECT)
[2024-03-20 23:02] LABS: U Amphetamine Screen Not Detected; U Barbituate Screen Not Detected; U Benzodiazapine Screen Not Detected; U Buprenorphine Screen Not Detected; U Cannabinoids Screen Not Detected; U Cocaine Screen Not Detected; U Methadone Screen Not Detected; U Methamphetamine Screen Not Detected; U Opiates Screen Not Detected; U Oxycodone Screen Not Detected; U Phencyclidine Screen Not Detected
[2024-03-20] MEDS ORDERED: FLU VACC TS2024-25(6MOS UP)/PF 45 MCG/0.5 ML SYRINGE IM ONE (23:20)
[2024-03-21] MEDS ORDERED: CefTRIAXone Sodium 1,000 MG in NS 100 ML IV SCH (00:13)
[2024-03-21] MEDS ORDERED: Lactated Ringer's 1,000 ML IV SCH (01:00)
[2024-03-21 02:01] LABS: BASOPHILS ABSOLUTE AUTO 0.03 K/mm3 (0.00-0.23); BASOPHILS PERCENT AUTO 1 % (0-2); EOSINOPHILS ABSOLUTE AUTO 0.07 K/mm3 (0.00-0.68); EOSINOPHILS PERCENT AUTO 1 % (0-6); Hematocrit 31.6 % (33.0-51.0); Hemoglobin 10.3 g/dL (11.5-16.0); IMMATURE GRAN ABSOLUTE AUTO 0.08 K/mm3 (0.00-0.10); IMMATURE GRAN PERCENT AUTO 1 % (0-1); LYMPHOCYTES ABSOLUTE AUTO 0.99 K/mm3 (0.84-5.20); LYMPHOCYTES PERCENT AUTO 15 % (21-46); MONOCYTES ABSOLUTE AUTO 1.14 K/mm3 (0.16-1.47); MONOCYTES PERCENT AUTO 18 % (4-13); Mean Corpuscular HGB Conc 32.6 g/dL (31.5-36.5); Mean Corpuscular Volume 89 fL (80-100); Mean Platelet Volume 9.8 fL (9.1-12.4); NEUTROPHILS ABSOLUTE AUTO 4.12 K/mm3 (1.96-9.15); NEUTROPHILS PERCENT AUTO 64 % (41-73); Platelet Count 134 K/mm3 (150-400); RDW Coefficient Variation 20.3 % (11.7-14.2); RDW Standard Deviation 63.7 fL (35.1-46.3); Red Blood Cell Count 3.55 M/mm3 (3.80-5.20); White Blood Cell Count 6.43 K/mm3 (4.00-11.30)
[2024-03-21] MEDS ORDERED: OxyCODONE HCL 5 MG TAB PO PRN (02:20)
[2024-03-21] MEDS ORDERED: Acetaminophen 325 MG TABLET PO PRN (02:20)
[2024-03-21 02:56] LABS: Albumin, Blood 2.9 g/dL (3.4-5.0); Albumin/Globulin Ratio 0.9 (0.8-1.8); Bilirubin, Total 0.4 mg/dL (0.1-1.0); Bun/Creatinine Ratio 9.4 (12.0-20.0); Creatinine, Blood 8.21 mg/dL (0.40-1.00); Globulin, Blood 3.4 g/dL (2.2-4.0); Phosphorus, Blood 3.6 mg/dL (2.5-4.9); Potassium, Blood 3.5 mmol/L (3.5-5.5); Total Protein, Blood 6.3 g/dL (6.4-8.2)
[2024-03-21] MEDS ORDERED: Thiamine HCl 200 MG in NS 100 ML IV SCH (08:28)
[2024-03-21] MEDS ORDERED: Enoxaparin 40 MG/0.4 ML SYR SC SCH (09:00)
[2024-03-21 12:37] LABS: Albumin, Blood 2.7 g/dL (3.4-5.0); Anion Gap 15 mmol/L (3-11); Blood Urea Nitrogen 80 mg/dL (8-24); Bun/Creatinine Ratio 9.5 (12.0-20.0); CO2, Blood 20 mmol/L (21-32); Calcium, Blood 8.5 mg/dL (8.5-10.1); Chloride, Blood 106 mmol/L (98-108); Creatinine, Blood 8.39 mg/dL (0.40-1.00); Glomerular Filtration Rate 6 (60-); Glucose, Blood 142 mg/dL (70-99); Phosphorus, Blood 4.7 mg/dL (2.5-4.9); Potassium, Blood 3.3 mmol/L (3.5-5.5); Sodium, Blood 138 mmol/L (136-145)
[2024-03-21] MEDS ORDERED: Sodium Bicarb 8.4% Inj 100 MEQ in Sodium Chloride 0.45% 1,000 ML IV SCH (14:25)
[2024-03-21 14:55] LABS: Osmolality, Serum 306 mos/KG (275-300)
[2024-03-21 15:09] LABS: Magnesium, Blood 1.8 mg/dL (1.6-2.4)
[2024-03-21 15:17] LABS: Albumin, Blood 2.9 g/dL (3.4-5.0); Anion Gap 16 mmol/L (3-11); Blood Urea Nitrogen 80 mg/dL (8-24); Bun/Creatinine Ratio 9.7 (12.0-20.0); CO2, Blood 19 mmol/L (21-32); Calcium, Blood 8.6 mg/dL (8.5-10.1); Chloride, Blood 106 mmol/L (98-108); Creatinine, Blood 8.22 mg/dL (0.40-1.00); Glomerular Filtration Rate 6 (60-); Glucose, Blood 114 mg/dL (70-99); Phosphorus, Blood 4.7 mg/dL (2.5-4.9); Potassium, Blood 3.9 mmol/L (3.5-5.5); Sodium, Blood 137 mmol/L (136-145)
[2024-03-21] MEDS ORDERED: BUSPIRONE HCL30 M1 PO (16:34)
[2024-03-21] MEDS ORDERED: DISU250 PO (16:35)
[2024-03-21] MEDS ORDERED: Naltrexone HCl50 MG PO (16:36)
[2024-03-21 16:44] VITALS: BP 141/96
--- NOTE | 2024-03-21 17:26 | NUR ---
Pt arrived to 328 via gurney from ED, report obtained, pt is a/ox4, cooperative with care, visitors in room, she denies falling at home then spoke to visitors about multiple falls, lungs are clear t/o, resp even and unlabored, no cough noted, on r/a, hrr, very trace edema noted to b/l le, ppp+2, cap refill <3 sec, vs stable, afebrile, piv to left hand, site is clear and patent, btx4, abd flat soft nontender, voids without diff, skin c/w/d, maew, except can not pull feet up, only push down, ambulated her to the shower, her gait is a bit unsteady, picking feet up high off the ground, gilbert, oriented her to room layout and call system, call light in reach.
[2024-03-21 20:09] VITALS: BP 134/89
[2024-03-21] MEDS ORDERED: NS 250 ML IV PRN (23:20)
[2024-03-22 04:09] LABS: Adenovirus Not Detected (NOT DETECT); Bordetella pertussis Not Detected (NOT DETECT); Chlamydophila pneumoniae Not Detected (NOT DETECT); Coronavirus 229E Not Detected (NOT DETECT); Coronavirus HKU1 Not Detected (NOT DETECT); Coronavirus NL63 Not Detected (NOT DETECT); Coronavirus OC43 Not Detected (NOT DETECT); Human Metapneumovirus Not Detected (NOT DETECT); Human Rhinovirus/Enterovirus Not Detected (NOT DETECT); Influenza A/2009-H1 Not Detected (NOT DETECT); Influenza A/H1 Not Detected (NOT DETECT); Influenza A/H3 Not Detected (NOT DETECT); Influenza B Not Detected (NOT DETECT); Mycoplasma pneumoniae Not Detected (NOT DETECT); Parainfluenza Virus 1 Not Detected (NOT DETECT); Parainfluenza Virus 2 Not Detected (NOT DETECT); Parainfluenza Virus 3 Not Detected (NOT DETECT); Parainfluenza Virus 4 Not Detected (NOT DETECT); Respiratory Syncytial Virus Not Detected (NOT DETECT); SARS-Cov-2 (COVID-19), BioFire Not Detected (NOT DETECT)
[2024-03-22 04:10] VITALS: BP 126/79
--- NOTE | 2024-03-22 05:08 | NUR ---
RN shift summary: Patient is alert and oriented. She did complain of a headache that increased when she coughed. Pt was diaphoretic and agitated. She strongly denied DT symptoms. She said she had not had a drink for 1 week and did not want to be reminded of it. She stated to me that she had experienced DT's before and knew what they were. Pt has had oxy 5 mg x2 for headache. She was able to rest between cares. Sodium bicarb IV running at 75cc/hr. Dr. Shea was in and consulted on the patient. Pt does have weakness, foot drop to khoa feet and does high step when up and ambulating but is able to ambulate to the BR with standby assist. She otherwise has mo physical weakness noted. No further agitation this since the beginning of shift. Call light is in reach.
[2024-03-22 05:20] LABS: Hematocrit 32.3 % (33.0-51.0); Hemoglobin 10.4 g/dL (11.5-16.0)
[2024-03-22 05:58] LABS: Albumin, Blood 2.7 g/dL (3.4-5.0); Anion Gap 14 mmol/L (3-11); Blood Urea Nitrogen 84 mg/dL (8-24); CO2, Blood 21 mmol/L (21-32); Calcium, Blood 8.9 mg/dL (8.5-10.1); Chloride, Blood 108 mmol/L (98-108); Glucose, Blood 106 mg/dL (70-99); Magnesium, Blood 1.5 mg/dL (1.6-2.4); Phosphorus, Blood 4.9 mg/dL (2.5-4.9); Potassium, Blood 3.4 mmol/L (3.5-5.5); Sodium, Blood 140 mmol/L (136-145)
[2024-03-22 06:00] LABS: Bun/Creatinine Ratio 10.2 (12.0-20.0); Glomerular Filtration Rate 6 (60-)
[2024-03-22] MEDS ORDERED: Mag Sulfate 1 GM/D5% 100ML 100 ML IV STA (06:48)
[2024-03-22] MEDS ORDERED: Potassium Chl 10MEQ/Water100ML 100 ML IV ONE (06:50)
[2024-03-22 07:42] VITALS: BP 129/94
[2024-03-22] MEDS ORDERED: Sertraline HCl 100 MG Tab PO SCH (09:00)
[2024-03-22] MEDS ORDERED: Nicotine 21 MG PATCH TOP SCH (09:00)
[2024-03-22] MEDS ORDERED: Potassium Chloride 10 Meq Tablet SA PO ONE (10:05)
--- NOTE | 2024-03-22 15:30 | NUR ---
SHIFT NOTE: PT A/OX4 ABLE TO MAKE HER NEEDS KNOWN. SHE REPORTS HER FEET ARE WORSE THAN YESTERDAY. SHE C/O SORE NECK WELL. SHE IS ABLE TO AMBULATE TO THE BATHROOM WITH FWW WITH A HIGHSTEP TO COMPENSATE FOR THE FOOT DROP. SHE IS ON RA, WITH NO REPORTS OF SOB. SHE IS ON TELE IN NSR, NO ACUTE EVENTS THIS SHIFT. SHE HAS DENIED ANY PO MEDICATIONS ASIDE FORM K*. SHE CLAIMS SHE IS STOPPING ALL HER MEDS. MD MICHELLED. BICARB RUNNING PER EMAR. WILL CONTINUE TO MONITOR AND REPORT TO ONCOMING JORGE
[2024-03-22 16:02] VITALS: BP 134/96
[2024-03-22 19:33] VITALS: BP 133/85
[2024-03-22] MEDS ORDERED: TraZODone HCl 50 MG Tab PO ONE (23:25)
[2024-03-23 05:16] VITALS: BP 134/99
--- NOTE | 2024-03-23 05:50 | NUR ---
NOC SUMMARY- PT HAD SOME DIFFICULTY RELAXING AND FALLING ASLEEP. PROVIDER CALLED AND ORDERED TRAZEDONE. PT REFUSED DUE ISSUE RESOLVED ON OWN.. NO OTHER ISSUES. PT RESTED QUIETLY FOR MOST OF SHIFT. CALL LIGHT IN REACH.
[2024-03-23 06:02] LABS: Hematocrit 31.9 % (33.0-51.0); Hemoglobin 10.4 g/dL (11.5-16.0)
[2024-03-23 06:29] LABS: BASOPHILS PERCENT AUTO 1 % (0-2); IMMATURE GRAN ABSOLUTE AUTO 0.28 K/mm3 (0.00-0.10); IMMATURE GRAN PERCENT AUTO 5 % (0-1); Mean Corpuscular HGB 28.4 pg (26.0-34.0); Mean Corpuscular HGB Conc 32.2 g/dL (31.5-36.5); Mean Corpuscular Volume 88 fL (80-100); Mean Platelet Volume 9.9 fL (9.1-12.4); Platelet Count 310 K/mm3 (150-400); RDW Coefficient Variation 21.2 % (11.7-14.2); Red Blood Cell Count 3.66 M/mm3 (3.80-5.20); White Blood Cell Count 5.21 K/mm3 (4.00-11.30)
[2024-03-23 06:32] LABS: Magnesium, Blood 1.7 mg/dL (1.6-2.4)
[2024-03-23 06:40] LABS: BASOPHILS ABSOLUTE AUTO 0.06 K/mm3 (0.00-0.23); EOSINOPHILS ABSOLUTE AUTO 0.11 K/mm3 (0.00-0.68); EOSINOPHILS PERCENT AUTO 2 % (0-6); LYMPHOCYTES ABSOLUTE AUTO 1.34 K/mm3 (0.84-5.20); LYMPHOCYTES PERCENT AUTO 26 % (21-46); MONOCYTES ABSOLUTE AUTO 1.51 K/mm3 (0.16-1.47); MONOCYTES PERCENT AUTO 29 % (4-13); NEUTROPHILS ABSOLUTE AUTO 1.92 K/mm3 (1.96-9.15); NEUTROPHILS PERCENT AUTO 37 % (41-73)
[2024-03-23 07:09] LABS: Albumin, Blood 2.6 g/dL (3.4-5.0); Albumin/Globulin Ratio 0.7 (0.8-1.8); Bilirubin, Total 0.3 mg/dL (0.1-1.0); Bun/Creatinine Ratio 10.3 (12.0-20.0); Calcium, Blood 8.5 mg/dL (8.5-10.1); Creatinine, Blood 7.15 mg/dL (0.40-1.00); Globulin, Blood 3.5 g/dL (2.2-4.0); Phosphorus, Blood 4.7 mg/dL (2.5-4.9); Potassium, Blood 3.6 mmol/L (3.5-5.5); Total Protein, Blood 6.1 g/dL (6.4-8.2)
[2024-03-23 07:15] VITALS: BP 147/84
[2024-03-23] MEDS ORDERED: Sodium Bicarb 8.4% Inj 100 MEQ in Sodium Chloride 0.45% 1,000 ML IV SCH ×2 (07:30→18:00)
[2024-03-23 10:04] LABS: HEPATITIS B SURFACE ANTIBODY <3.10 IU/L; HEPATITIS B SURFACE ANTIGEN Negative (Negative); HEPATITIS BE ANTIBODY Negative (Negative); HEPATITIS BE ANTIGEN Negative (Negative)
--- NOTE | 2024-03-23 13:10 | NUR ---
NOTES PT REFUSED ZOLOFT THIS AM. PT REPORTED HEADACHE, AND NAUSEA. PT REPORTED NOT WANTING TO TAKE ZOLOFT ANY LONGER. ATTEMPTED TO GO OVER RISKS OF NOT TAPERING OFF MEDICATION, AND WITHDRAWL SYMPTOMS. PT WAS NOT RECEPTIVE TO EDUCATION. PT FACED THE OTHER WAY WHEN OFFERED SOLUTIONS.
[2024-03-23 15:05] VITALS: BP 138/95
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
[2024-03-23] MEDS ORDERED: BusPIRone HCl 5 MG Tab PO PRN (15:35)
[2024-03-23] MEDS ORDERED: ALPRAZolam 0.25 MG Tab PO PRN (15:35)
--- NOTE | 2024-03-23 16:46 | NUR ---
SHIFT SUMMARY PT A&OX4. PT ADMITTED DUE TO LOWER EXTREMITY PARALYSIS, BEING TREATED FOR DECLINING KIDNEY FUNCTION. PT VOIDING ADEQUATELY. PT REPORTS NUMBNESS ON TOP OF FEET BUT HAS ABILITY TO AMBULATE SELF TO BATHROOM TO VOID. PT HAS HX OF DROP FOOT. PT REPORTS LESSEN ANXIETY POST HAVING BUSBAR, AND DEEP BREATHING. PT HAS SODIUM BICARB INFUSING AT 50ML/HR. PT HAS REPORTED HIP PAIN AND HEADACHE AND HAS BEEN MEDICATED PER EMAR WITH TYLENOL. VSS. PT REPORTS NO SOB/CHEST DISCOMFORT. PT CALLS APPROPRIATELY AND CALL LIGHT IN REACH.
[2024-03-23 19:25] VITALS: BP 147/89
--- NOTE | 2024-03-24 05:04 | NUR ---
NOC SUMMARY- PT HAS SLEPT WELL THIS SHIFT. NO EVENTS REPORTED FROM TELE. PT HAS BEEN VOIDINGG WELL. PT JURADO WAS TX W/ TYELENOL W/ RELIEF. CALL LIGHT IN REACH.
[2024-03-24 06:04] VITALS: BP 125/75
[2024-03-24 08:10] VITALS: BP 133/88
[2024-03-24 08:21] LABS: BASOPHILS ABSOLUTE AUTO 0.04 K/mm3 (0.00-0.23); BASOPHILS PERCENT AUTO 1 % (0-2); EOSINOPHILS ABSOLUTE AUTO 0.11 K/mm3 (0.00-0.68); EOSINOPHILS PERCENT AUTO 2 % (0-6); Hematocrit 30.7 % (33.0-51.0); Hemoglobin 9.9 g/dL (11.5-16.0); IMMATURE GRAN ABSOLUTE AUTO 0.16 K/mm3 (0.00-0.10); IMMATURE GRAN PERCENT AUTO 3 % (0-1); LYMPHOCYTES ABSOLUTE AUTO 1.32 K/mm3 (0.84-5.20); LYMPHOCYTES PERCENT AUTO 27 % (21-46); MONOCYTES ABSOLUTE AUTO 1.48 K/mm3 (0.16-1.47); MONOCYTES PERCENT AUTO 31 % (4-13); Mean Corpuscular HGB 28.9 pg (26.0-34.0); Mean Corpuscular HGB Conc 32.2 g/dL (31.5-36.5); Mean Corpuscular Volume 90 fL (80-100); Mean Platelet Volume 9.3 fL (9.1-12.4); NEUTROPHILS ABSOLUTE AUTO 1.71 K/mm3 (1.96-9.15); NEUTROPHILS PERCENT AUTO 36 % (41-73); Platelet Count 380 K/mm3 (150-400); RDW Coefficient Variation 21.4 % (11.7-14.2); RDW Standard Deviation 68.6 fL (35.1-46.3); Red Blood Cell Count 3.43 M/mm3 (3.80-5.20); White Blood Cell Count 4.82 K/mm3 (4.00-11.30)
[2024-03-24 08:38] LABS: Albumin, Blood 2.5 g/dL (3.4-5.0); Albumin/Globulin Ratio 0.8 (0.8-1.8); Bilirubin, Total 0.3 mg/dL (0.1-1.0); Bun/Creatinine Ratio 10.6 (12.0-20.0); Creatinine, Blood 6.23 mg/dL (0.40-1.00); Globulin, Blood 3.3 g/dL (2.2-4.0); Magnesium, Blood 1.6 mg/dL (1.6-2.4); Phosphorus, Blood 4.5 mg/dL (2.5-4.9); Potassium, Blood 3.4 mmol/L (3.5-5.5); Total Protein, Blood 5.8 g/dL (6.4-8.2)
[2024-03-24] MEDS ORDERED: OxyCODONE HCL 5 MG TAB PO PRN (09:50)
[2024-03-24] MEDS ORDERED: Potassium Chloride 20 MEQ TabCR PO ONE (11:50)
[2024-03-24] MEDS ORDERED: NS 1,000 ML IV SCH (12:00)
[2024-03-24 16:38] VITALS: BP 137/75
--- NOTE | 2024-03-24 17:28 | NUR ---
SHIFT SUMMARY PT RESTING QUIETLY AT START OF SHIFT. WOKE LATE FOR BREAKFAST. FLAT AFFECT AT FIRST, BUT CO-OP WITH CARE. DR GONZALEZ HERE TO SEE PT AND DISCUSS PLAN OF CARE. PT'S MOOD IMPROVED THRU OUT THE DAY. S/O TO RM JUST PRIOR TO LUNCH. PT OUT OF RM FOR WALK AROUND UNIT. PT INSTRUCTED TO REMAIN ON UNIT WITH TELE MX AND IV PUMP. IVF'S CHANGED PER DR BETANCOURT. DENTAL HYGENIST IN TO SEE PT; WARM SALT WATER RINSES ENCOURAGE FOR CANKER SORE IN MOUTH; PT VERBALIZED UNDERSTANDING. MEDICATED X1 FOR C/O JURADO THIS AM. NO FURTHER C/O. RESTING QUIETLY WATCHING TV AT THIS TIME. CALL LT IN REACH.
[2024-03-24 19:19] VITALS: BP 124/81
[2024-03-25 02:28] VITALS: BP 146/90
[2024-03-25 05:30] LABS: Hematocrit 30.8 % (33.0-51.0); Hemoglobin 9.8 g/dL (11.5-16.0)
--- NOTE | 2024-03-25 06:03 | NUR ---
SHIFT SUMMARY: Pt is admitted for lower extremity paralysis and JUDIT is a full code. Is alert and able to make needs known. ADLs have been IND or SBA depending on how she was feeling or cable management. Denies pain or discomfort when asked. Telly reports sinus in the 70s.
[2024-03-25 06:24] LABS: Anion Gap 12 mmol/L (3-11); Blood Urea Nitrogen 53 mg/dL (8-24); Bun/Creatinine Ratio 10.5 (12.0-20.0); CO2, Blood 26 mmol/L (21-32); Calcium, Blood 9.3 mg/dL (8.5-10.1); Chloride, Blood 106 mmol/L (98-108); Creatinine, Blood 5.03 mg/dL (0.40-1.00); Glomerular Filtration Rate 10 (60-); Glucose, Blood 108 mg/dL (70-99); Magnesium, Blood 1.6 mg/dL (1.6-2.4); Phosphorus, Blood 3.7 mg/dL (2.5-4.9); Potassium, Blood 3.4 mmol/L (3.5-5.5); Sodium, Blood 141 mmol/L (136-145)
[2024-03-25] MEDS ORDERED: NS 250 ML IV PRN (06:25)
[2024-03-25 07:22] VITALS: BP 135/81
[2024-03-25] MEDS ORDERED: Potassium Chloride 10 Meq Tablet SA PO SCH (08:30)
[2024-03-25] MEDS ORDERED: Heparin Sodium,Porcine 5,000 UNIT/0.5 ML SDV SC SCH (09:00)
[2024-03-25] MEDS ORDERED: Sertraline HCl 50 MG Tab PO SCH (09:00)
--- NOTE | 2024-03-25 09:25 | NUR ---
pt laying in bed with eyes open, states she wants to sleep more but needs to get up to bathroom, gait is steady, a/ox4, coopertive with care, follows commands well, denies pain reports feels better than when she came in, lungs are clear t/o, resp even and unlabored, no cough noted, hrr, bounding, trace edema noted to right le, ppp +2, cap refill < 3 sec, vs stable, afebrile, piv to rfa siste is clear and patent, btx4, abd flat soft nontender, voids without diff, skin c/w/d, maew, gilbert, call light in reach.
[2024-03-25] MEDS ORDERED: Ondansetron HCl 2 MG / ML 2ML Vial IV PRN (12:30)
[2024-03-25 15:30] VITALS: BP 132/87
--- NOTE | 2024-03-25 18:10 | NUR ---
pt has had ongoing h/a today, eased up for a time when she took a nap, medicated per mar, no acute changes this shift. call light in reach.
[2024-03-25 19:12] VITALS: BP 127/93
[2024-03-26 05:00] VITALS: BP 119/90
[2024-03-26 05:09] LABS: Hematocrit 29.4 % (33.0-51.0); Hemoglobin 9.1 g/dL (11.5-16.0)
--- NOTE | 2024-03-26 05:48 | NUR ---
SHIFT SUMMARY: Pt is admitted for lower extremity paralysis and JUDIT is a full code. Is alert and able to make needs known. ADLs have been IND. Denies pain or discomfort when asked.
[2024-03-26 05:53] LABS: Albumin, Blood 2.7 g/dL (3.4-5.0); Anion Gap 10 mmol/L (3-11); Blood Urea Nitrogen 44 mg/dL (8-24); Bun/Creatinine Ratio 11.8 (12.0-20.0); CO2, Blood 27 mmol/L (21-32); Calcium, Blood 8.8 mg/dL (8.5-10.1); Chloride, Blood 110 mmol/L (98-108); Creatinine, Blood 3.73 mg/dL (0.40-1.00); Glomerular Filtration Rate 15 (60-); Glucose, Blood 90 mg/dL (70-99); Magnesium, Blood 1.3 mg/dL (1.6-2.4); Phosphorus, Blood 4.4 mg/dL (2.5-4.9); Potassium, Blood 3.9 mmol/L (3.5-5.5); Sodium, Blood 143 mmol/L (136-145)
[2024-03-26] MEDS ORDERED: Magnesium Sulf 2 GM/Water 50ML 50 ML IV ONE (07:25)
[2024-03-26 07:52] VITALS: BP 137/89
[2024-03-26] MEDS ORDERED: Magnesium Oxide 400 MG Tab PO SCH (09:00)
[2024-03-26 15:21] VITALS: BP 139/95
[2024-03-26 19:24] VITALS: BP 142/84
--- NOTE | 2024-03-26 19:50 | NUR ---
PT QUITE PLEASANT TODAY. FIANCE IN TO SEE TODAY. SHE WALKED HALLS WITH HIM. FOOD DROP NOT IMPROVED THIS DAY. 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 NO OTHER NEW CONCERNS NOTED. BED INL OW POSITION, CALL [facility] IN [facility], CALLS APPROP
[2024-03-27 05:09] VITALS: BP 107/75
[2024-03-27 06:25] LABS: Albumin, Blood 2.6 g/dL (3.4-5.0); Anion Gap 9 mmol/L (3-11); Blood Urea Nitrogen 34 mg/dL (8-24); CO2, Blood 27 mmol/L (21-32); Calcium, Blood 8.5 mg/dL (8.5-10.1); Chloride, Blood 112 mmol/L (98-108); Creatinine, Blood 2.84 mg/dL (0.40-1.00); Glomerular Filtration Rate 20 (60-); Glucose, Blood 97 mg/dL (70-99); Phosphorus, Blood 3.9 mg/dL (2.5-4.9); Potassium, Blood 4.2 mmol/L (3.5-5.5); Sodium, Blood 144 mmol/L (136-145)
[2024-03-27 07:38] VITALS: BP 131/85
[2024-03-27 11:33] LABS: BASOPHILS ABSOLUTE AUTO 0.08 K/mm3 (0.00-0.23); BASOPHILS PERCENT AUTO 1 % (0-2); EOSINOPHILS ABSOLUTE AUTO 0.06 K/mm3 (0.00-0.68); EOSINOPHILS PERCENT AUTO 1 % (0-6); Hematocrit 27.3 % (33.0-51.0); Hemoglobin 8.6 g/dL (11.5-16.0); IMMATURE GRAN ABSOLUTE AUTO 0.03 K/mm3 (0.00-0.10); IMMATURE GRAN PERCENT AUTO 0 % (0-1); LYMPHOCYTES ABSOLUTE AUTO 1.46 K/mm3 (0.84-5.20); LYMPHOCYTES PERCENT AUTO 20 % (21-46); MONOCYTES ABSOLUTE AUTO 1.06 K/mm3 (0.16-1.47); MONOCYTES PERCENT AUTO 15 % (4-13); Mean Corpuscular HGB 29.2 pg (26.0-34.0); Mean Corpuscular HGB Conc 31.5 g/dL (31.5-36.5); Mean Corpuscular Volume 93 fL (80-100); Mean Platelet Volume 10.1 fL (9.1-12.4); NEUTROPHILS ABSOLUTE AUTO 4.58 K/mm3 (1.96-9.15); NEUTROPHILS PERCENT AUTO 63 % (41-73); Platelet Count 510 K/mm3 (150-400); RDW Coefficient Variation 21.2 % (11.7-14.2); RDW Standard Deviation 71.2 fL (35.1-46.3); Red Blood Cell Count 2.95 M/mm3 (3.80-5.20); White Blood Cell Count 7.27 K/mm3 (4.00-11.30)
[2024-03-27 12:02] LABS: Albumin, Blood 2.8 g/dL (3.4-5.0); Albumin/Globulin Ratio 0.9 (0.8-1.8); Bilirubin, Total 0.3 mg/dL (0.1-1.0); Bun/Creatinine Ratio 12.3 (12.0-20.0); Creatinine, Blood 2.61 mg/dL (0.40-1.00); Globulin, Blood 3.1 g/dL (2.2-4.0); Magnesium, Blood 1.4 mg/dL (1.6-2.4); Potassium, Blood 4.6 mmol/L (3.5-5.5); Total Protein, Blood 5.9 g/dL (6.4-8.2)
[2024-03-27 15:09] VITALS: BP 130/87
--- NOTE | 2024-03-27 18:17 | NUR ---
SHIFT SUMMARY PT IS A/OX4. INDEPENDENT IN THE ROOM AND HALLWAYS. NO ACUTE EVENTS THROUGHOUT THIS SHIFT. PT IS ON RA, STATS MAINTIANING >95%. NS RUNNING AT 50 ML/HR. FRIENDS/FAMIMLY AT BEDISDE THROUGHOUT THIS SHIFT.
[2024-03-27 20:24] VITALS: BP 145/97
[2024-03-28 05:01] VITALS: BP 128/74
[2024-03-28 05:26] LABS: BASOPHILS PERCENT AUTO 2 % (0-2); EOSINOPHILS ABSOLUTE AUTO 0.09 K/mm3 (0.00-0.68); EOSINOPHILS PERCENT AUTO 1 % (0-6); Hematocrit 26.9 % (33.0-51.0); Hemoglobin 8.5 g/dL (11.5-16.0); IMMATURE GRAN ABSOLUTE AUTO 0.03 K/mm3 (0.00-0.10); IMMATURE GRAN PERCENT AUTO 1 % (0-1); LYMPHOCYTES PERCENT AUTO 25 % (21-46); MONOCYTES ABSOLUTE AUTO 0.93 K/mm3 (0.16-1.47); MONOCYTES PERCENT AUTO 15 % (4-13); Mean Corpuscular HGB 29.6 pg (26.0-34.0); Mean Corpuscular HGB Conc 31.6 g/dL (31.5-36.5); Mean Corpuscular Volume 94 fL (80-100); Mean Platelet Volume 9.9 fL (9.1-12.4); NEUTROPHILS ABSOLUTE AUTO 3.61 K/mm3 (1.96-9.15); NEUTROPHILS PERCENT AUTO 57 % (41-73); Platelet Count 494 K/mm3 (150-400); RDW Coefficient Variation 21.2 % (11.7-14.2); RDW Standard Deviation 71.8 fL (35.1-46.3); Red Blood Cell Count 2.87 M/mm3 (3.80-5.20); White Blood Cell Count 6.36 K/mm3 (4.00-11.30)
[2024-03-28 05:40] LABS: Magnesium, Blood 1.5 mg/dL (1.6-2.4)
[2024-03-28 05:41] LABS: Alanine Aminotransfer (ALT/SGP 84 U/L (12-78); Albumin, Blood 2.7 g/dL (3.4-5.0); Albumin/Globulin Ratio 0.8 (0.8-1.8); Alk Phos 55 U/L (50-136); Anion Gap 10 mmol/L (3-11); Aspartate Aminotrans (AST/SGOT 31 U/L (12-37); Bilirubin, Total 0.4 mg/dL (0.1-1.0); Blood Urea Nitrogen 28 mg/dL (8-24); Bun/Creatinine Ratio 12.3 (12.0-20.0); CO2, Blood 26 mmol/L (21-32); Calcium, Blood 8.8 mg/dL (8.5-10.1); Chloride, Blood 114 mmol/L (98-108); Creatinine, Blood 2.27 mg/dL (0.40-1.00); Globulin, Blood 3.2 g/dL (2.2-4.0); Glomerular Filtration Rate 27 (60-); Glucose, Blood 96 mg/dL (70-99); Phosphorus, Blood 3.6 mg/dL (2.5-4.9); Potassium, Blood 4.4 mmol/L (3.5-5.5); Sodium, Blood 146 mmol/L (136-145); Total Protein, Blood 5.9 g/dL (6.4-8.2)
[2024-03-28 07:23] VITALS: BP 131/77
[2024-03-28] MEDS ORDERED: Magnesium Sulf 2 GM/Water 50ML 50 ML IV ONE (14:20)
[2024-03-28 15:33] VITALS: BP 144/99
--- NOTE | 2024-03-28 17:00 | NUR ---
SHIFT SUMMARY PT IS A/OX4, INDEPENDENT IN THE ROOM. NO ACUTE EVENTS THROUGHOUT THIS SHIFT. PT STILL HAS A SLIGHT BILATERAL FOOT DROP WHEN AMBULATING, PHYSICAL THERAPY CONSULTED. TYLENOL AND ROXICODONE GIVEN X1 THIS SHIFT.
[2024-03-28 20:16] VITALS: BP 147/96
[2024-03-29 04:31] VITALS: BP 121/72
[2024-03-29 05:57] LABS: Hematocrit 28.1 % (33.0-51.0); Hemoglobin 8.8 g/dL (11.5-16.0)
[2024-03-29 06:21] LABS: Magnesium, Blood 2.2 mg/dL (1.6-2.4)
[2024-03-29 06:22] LABS: Albumin, Blood 2.9 g/dL (3.4-5.0); Anion Gap 9 mmol/L (3-11); Blood Urea Nitrogen 27 mg/dL (8-24); Bun/Creatinine Ratio 13.1 (12.0-20.0); CO2, Blood 26 mmol/L (21-32); Calcium, Blood 9.3 mg/dL (8.5-10.1); Chloride, Blood 113 mmol/L (98-108); Creatinine, Blood 2.06 mg/dL (0.40-1.00); Glomerular Filtration Rate 30 (60-); Glucose, Blood 99 mg/dL (70-99); Phosphorus, Blood 3.7 mg/dL (2.5-4.9); Potassium, Blood 4.2 mmol/L (3.5-5.5); Sodium, Blood 144 mmol/L (136-145)
[2024-03-29 07:39] VITALS: BP 136/78
--- NOTE | 2024-03-29 09:04 | NUR ---
PT LEFT AMA THIS MORNING APPROX AT 0830. PT HAD REQUESTED THIS AM HER IV BE REMOVED SO SHE CAN LEAVE. PT DENIED SHE WAS GOING TO LEAVE AMA. PT WAS INFORMED MD HAS TO REVIEW LABS TO DETERMINE IF SHE CAN GET DISCHARGED AND COMPLETE PAPERWORK BEFORE SHE CAN LEAVE AND HAVE IV REMOVED. PT VERBALIZED UNDERSTANDING. PT BOYFRIEND WAS ALSO PRESENT AND INFORMED. DR. SETHI ROUNDED ON PT IN ROOM AROUND 9:00 AM AND PT WAS NOT IN HER ROOM. THERE WAS AN IV ON THE BEDSIDE TABLE THAT WAS LIKELY TAKEN OUT BY PT. STAFF MEMBER [employer] REPORTED SEEING PT LEAVE AROUND 0830 WITH HER BOYFRIEND GETTING ON THE ELEVATOR. DR. SETHI INFORMED PT LIKELY LEFT AMA WITHOUT TELLING ANYONE SHE WAS LEAVONG. [employer] HANDYMAN INFORMED OF PT LEAVING AMA.
--- NOTE | 2024-03-29 10:03 | NUR ---
NOTE PT STATED TO BE UNHOOKED FROM IV FLUIDS BECAUSE SHE STATED SHE WAS TOLD SHE COULD BE DISCHARGED. PT STATED "PHYSICAL THERAPY TOLD HER SHE WOULD BE GOOD TO GO." I VERBALIZED THAT THE DOCTOR WOULD MAKE THAT DECISION. LET PT KNOW I HAVE NOT RECIEVED DISCHARGE ORDERS OR ORDERS TO D/C IV FLUIDS. PT CONTINUES TO REQUEST TO BE UNHOOKED FROM IV FLUIDS. I UNHOOKED PT FROM IV FLUIDS PER REQUEST FROM PT. PT DID NOT INDICATE SHE WAS LEAVING. PT VERBALIZED UNDERSTANDING THAT DOCTOR NEEDED TO ROUND. PT LEFT AMA WITHOUT LETTING US KNOW SHE WAS LEAVING.
== END 2024-03-29 08:30 | disposition left against medical advice (07) | DRG 683 ==
LOC: ER 14:37 → MEDS 23:19 → ERHOLD 23:19 → MEDS 23:19
PROVIDERS: Family Medicine; Internal Medicine; Internal Medicine Nephrology; Physician Assistant; Student in an Organized Health Care Education/Training Program; ADMIT Student in an Organized Health Care Education/Training Program
PROC: 009U3ZX Drainage of Spinal Canal, Percutaneous Approach, Diagnostic (ICD-10-PCS; principal; 2024-03-20)
DX: N17.0 Acute kidney failure with tubular necrosis (principal); E87.20 Acidosis, unspecified; F17.213 Nicotine dependence, cigarettes, with withdrawal; N20.0 Calculus of kidney; M21.372 Foot drop, left foot; M21.371 Foot drop, right foot; N18.2 Chronic kidney disease, stage 2 (mild); T79.6XXA Traumatic ischemia of muscle, initial encounter; W18.30XA Fall on same level, unspecified, initial encounter; R29.6 Repeated falls; F17.290 Nicotine dependence, other tobacco product, uncomplicated; E86.9 Volume depletion, unspecified; E87.6 Hypokalemia; D63.1 Anemia in chronic kidney disease; F10.21 Alcohol dependence, in remission; E83.42 Hypomagnesemia; F32.9 Major depressive disorder, single episode, unspecified; F41.1 Generalized anxiety disorder; Z88.2 Allergy status to sulfonamides; Z79.899 Other long term (current) drug therapy; M41.9 Scoliosis, unspecified; R29.898 Other symptoms and signs involving the musculoskeletal system; F10.20 Alcohol dependence, uncomplicated
CPT/HCPCS: 0202U; 36415; 51798; 62270; 72100; 72148; 76705; 76770; 80053; 80069; 80320; 81001; 81025; 82550; 82570; 82607; 82746; 82945; 83735; 83930; 84100; 84157; 84425; 84439; 84443; 84540; 85014; 85018; 85025; 86140; 86592; 87070; 87086; 87205; 87483; 89051; 94760; 96360-59; 99285-25; A9270; G0480; J0696; J1644; J1650; J2405; J3411; J3475; J3480; J7030; J7050

== ENCOUNTER → 2024-03-20 | Outpatient (CLI) | payer OTHER ==
[~2024-03-20] MED LIST changes: +B-1100 M1 PO; +BUSPIRONE HCL30 M1 PO; +DISU250 PO; +Naltrexone HCl50 MG PO; +Trazodone HCl300 MG PO
[2024-03-20 12:36] LABS: BASOPHILS ABSOLUTE AUTO 0.02 K/mm3 (0.00-0.23); BASOPHILS PERCENT AUTO 0 % (0-2); EOSINOPHILS ABSOLUTE AUTO 0.05 K/mm3 (0.00-0.68); EOSINOPHILS PERCENT AUTO 1 % (0-6); Hematocrit 34.3 % (33.0-51.0); Hemoglobin 11.6 g/dL (11.5-16.0); IMMATURE GRAN ABSOLUTE AUTO 0.04 K/mm3 (0.00-0.10); IMMATURE GRAN PERCENT AUTO 1 % (0-1); LYMPHOCYTES ABSOLUTE AUTO 1.02 K/mm3 (0.84-5.20); LYMPHOCYTES PERCENT AUTO 15 % (21-46); MONOCYTES ABSOLUTE AUTO 0.96 K/mm3 (0.16-1.47); MONOCYTES PERCENT AUTO 14 % (4-13); Mean Corpuscular HGB 28.6 pg (26.0-34.0); Mean Corpuscular HGB Conc 33.8 g/dL (31.5-36.5); Mean Corpuscular Volume 85 fL (80-100); Mean Platelet Volume 10.1 fL (9.1-12.4); NEUTROPHILS ABSOLUTE AUTO 4.61 K/mm3 (1.96-9.15); NEUTROPHILS PERCENT AUTO 69 % (41-73); Platelet Count 149 K/mm3 (150-400); RDW Coefficient Variation 20.1 % (11.7-14.2); RDW Standard Deviation 59.6 fL (35.1-46.3); Red Blood Cell Count 4.06 M/mm3 (3.80-5.20)
[2024-03-20 13:39] LABS: Albumin, Blood 3.4 g/dL (3.4-5.0); Albumin/Globulin Ratio 0.9 (0.8-1.8); Bilirubin, Total 0.7 mg/dL (0.1-1.0); Bun/Creatinine Ratio 9.6 (12.0-20.0); Calcium, Blood 8.6 mg/dL (8.5-10.1); Globulin, Blood 3.7 g/dL (2.2-4.0); Phosphorus, Blood 3.3 mg/dL (2.5-4.9); Potassium, Blood 3.5 mmol/L (3.5-5.5); Total Protein, Blood 7.1 g/dL (6.4-8.2)
[2024-03-20 13:59] LABS: Creatinine, Blood 8.22 mg/dL (0.40-1.00)
[2024-03-26 09:36] LABS: VITAMIN B1,WHOLE BLOOD 119 nmol/L (70-180)
== END | disposition home or self-care (01) ==
LOC: LAB SHORT 12:19 → LAB 12:19
PROVIDERS: Family Medicine
DX: R29.898 Other symptoms and signs involving the musculoskeletal system (principal); F10.20 Alcohol dependence, uncomplicated
CPT/HCPCS: 80053; 82550; 82607; 82746; 83735; 84100; 85025

== ENCOUNTER → 2024-08-09 | Outpatient (CLI) | payer OTHER ==
[~2024-08-09] MED LIST changes: +BUSPIRONE HCL30 M1 PO; +DISU250 PO; +Naltrexone HCl50 MG PO
== END ==
LOC: LAB SHORT 16:59 → LAB 16:59
DX: N39.0 Urinary tract infection, site not specified (principal)
CPT/HCPCS: 87077; 87086; 87186

== ENCOUNTER → 2024-08-30 | Outpatient (CLI) | payer OTHER ==
[2024-08-30 20:33] LABS: Candida Group, PCR NOT DETECTED (NOT DETECT); Candida glabrata-krusei, PCR NOT DETECTED (NOT DETECT)
[2024-08-30 20:58] LABS: Bacterial Vaginosis PCR Positive (NEGATIVE)
== END ==
LOC: LAB SHORT 14:30 → LAB 14:30
PROVIDERS: Physician Assistant
DX: N89.8 Other specified noninflammatory disorders of vagina (principal); R39.9 Unspecified symptoms and signs involving the genitourinary system
CPT/HCPCS: 81515; 87086

== ENCOUNTER 2024-09-23 01:18 | Day surgery (SDC) | payer OTHER ==
[2024-09-23] MEDS ORDERED: Sod Ferric Gluc Complx/Sucrose 125 MG in NS 100 ML IV SCH (07:10)
[2024-09-23 16:15] VITALS: BP 126/71
[2024-09-23] MEDS ORDERED: BUSP10 PO (16:45)
[2024-09-23] MEDS ORDERED: AVIANE-28 TABL1 EACH PO (16:45)
[2024-09-23] MEDS ORDERED: SERT50 PO (16:46)
== END 2024-09-23 17:33 | disposition home or self-care (01) ==
LOC: ATC 01:18
DX: D50.9 Iron deficiency anemia, unspecified (principal); I12.9 Hypertensive chronic kidney disease with stage 1 through stage 4 chronic kidney disease, or unspecified chronic kidney disease; N18.32 Chronic kidney disease, stage 3b; E78.2 Mixed hyperlipidemia; Z91.030 Bee allergy status; Z88.2 Allergy status to sulfonamides; Z88.8 Allergy status to other drugs, medicaments and biological substances; Z91.048 Other nonmedicinal substance allergy status; Z79.899 Other long term (current) drug therapy; Z87.891 Personal history of nicotine dependence
CPT/HCPCS: 96365; J2916

== ENCOUNTER 2024-10-01 02:23 | Day surgery (SDC) | payer OTHER ==
[~2024-10-01 02:23] MED LIST changes: +AVIANE-28 TABL1 EACH PO; +SERT50 PO
[2024-10-01] MEDS ORDERED: Sod Ferric Gluc Complx/Sucrose 125 MG in NS 100 ML IV SCH (06:00)
[2024-10-01 16:12] VITALS: BP 135/82
== END 2024-10-01 17:19 | disposition home or self-care (01) ==
LOC: ATC 02:23
DX: D50.9 Iron deficiency anemia, unspecified (principal); I12.9 Hypertensive chronic kidney disease with stage 1 through stage 4 chronic kidney disease, or unspecified chronic kidney disease; N18.32 Chronic kidney disease, stage 3b; Z87.891 Personal history of nicotine dependence; Z91.030 Bee allergy status; Z88.8 Allergy status to other drugs, medicaments and biological substances; Z91.048 Other nonmedicinal substance allergy status; Z79.899 Other long term (current) drug therapy
CPT/HCPCS: 96365; J2916

== ENCOUNTER 2024-10-08 03:51 | Day surgery (SDC) | payer OTHER ==
[~2024-10-08 03:51] MED LIST changes: +Sod Ferric Gluc Complx/Sucrose 125 MG in NS 100 ML IV SCH
[2024-10-08 16:08] VITALS: BP 113/65
== END 2024-10-08 17:18 | disposition home or self-care (01) ==
LOC: ATC 03:51
DX: D50.9 Iron deficiency anemia, unspecified (principal); I12.9 Hypertensive chronic kidney disease with stage 1 through stage 4 chronic kidney disease, or unspecified chronic kidney disease; N18.32 Chronic kidney disease, stage 3b; F32.9 Major depressive disorder, single episode, unspecified; Z87.891 Personal history of nicotine dependence; Z91.030 Bee allergy status; Z88.2 Allergy status to sulfonamides; Z88.8 Allergy status to other drugs, medicaments and biological substances; Z91.048 Other nonmedicinal substance allergy status; Z79.899 Other long term (current) drug therapy
CPT/HCPCS: 96365; J2916